=== PATIENT | female | born 1940 | race Caucasian/White ===

== ENCOUNTER 2016-11-07 11:06 | Outpatient (CLI) | payer MEDICARE, OTHER | END 2016-11-07 11:07 | disposition home or self-care (01) | DX: Z79.899 Other long term (current) drug therapy (principal); E55.9 Vitamin D deficiency, unspecified; I10 Essential (primary) hypertension ==

== ENCOUNTER 2017-06-28 23:53 | Outpatient (CLI) | payer MEDICARE, OTHER | END 2017-06-28 23:54 | disposition critical access hospital (66) | LOC: EMS 23:53 | PROVIDERS: ATTEND Surgery | DX: R40.20 Unspecified coma (principal) | CPT/HCPCS: A0425; A0427 ==

== ENCOUNTER 2017-06-29 00:24 | Observation (INO) | payer MEDICARE, OTHER ==
--- NOTE | 2017-06-29 00:40 | ED Physician Documentation ---
PD HPI ALTERED MENTAL STATUS - Stated complaint Stated Complaint: ALOC/SYNCOPE - Chief complaint Chief Complaint: Neuro - History obtained from History obtained from: Patient, EMS - History of Present Illness Timing - onset: How many days ago (has had some increased confusion and weakness for 2-3 days. Has been treating constipation with naturopathic colonics (enemas). Weaker today and then had syncope with then unresponsive after this evening going to bathroom. 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 No: Fever, Headache , Cough, Seizure activity Contributing factors: Other (being treated for chronic constipation, recently seen [employer] and given colonic enemas, with soft/watery stool per . No other change in meds.). No: Anticoagulated, Diabetic, Recent illness Basline status: Alert and oriented X 3, Ambulatory Similar symptoms before: Has not had sx before Recently seen: Clinic Review of Systems Constitutional: denies: Fever, Chills Eyes: denies: Loss of vision, Decreased vision Nose: denies: Rhinorrhea / runny nose Throat: denies: Sore throat Cardiac: denies: Chest pain / pressure, Palpitations Respiratory: denies: Dyspnea, Cough, Wheezing GI: reports: Nausea. denies: Abdominal Pain, Vomiting, Diarrhea, Bloody / black stool : denies: Dysuria, Frequency Musculoskeletal: reports: Back pain Neurologic: reports: Generalized weakness. denies: Focal weakness, Numbness Endocrine: denies: Weight loss Immunocompromised: denies: Immunocompromised PD PAST MEDICAL HISTORY - Past Medical History Cardiovascular: None Respiratory: None Neuro: None Endocrine/Autoimmune: None - Present Medications Home Medications: Ambulatory Orders Medication Instructions Recorded Confirmed Acetaminophen [Tylenol] 325 mg PO Q6H PRN 04/26/13 01/28/16 Gabapentin [Neurontin] 1,200 mg PO TID 04/26/13 01/28/16 LORazepam [Ativan] 2 mg PO HS 04/26/13 01/28/16 - Allergies Allergies/Adverse Reactions: Allergies Allergy/AdvReac Type Severity Reaction Status Date / Time cephalexin monohydrate * Allergy Hives Verified 01/28/16 01:14 [From [facility]] - Living Situation Living Situation: reports: With spouse/s.o. Living Arrangement: reports: At home - Family History Family history: reports: Non contributory PD ED PE NORMAL - Vitals Vital signs reviewed: Yes - General General: Other - HEENT HEENT: Other (minimally responsive on arrival to ED, with pallor. Responds to tactile/mild painful stimuli. ) - Neck Neck: Supple, no meningeal sign, No adenopathy - Cardiac Cardiac: RRR, No murmur - Respiratory Respiratory: Clear bilaterally - Abdomen Abdomen: Soft, Non tender - Female Female : Deferred - Rectal Rectal: Deferred - Back Back: No CVA TTP - Derm Derm: Normal color, Warm and dry - Extremities Extremities: No deformity, No tenderness to palpate, No edema, No calf tenderness / cord Results - Vitals Vitals: Vital Signs - 24 hr 06/29/17 06/29/17 00:27 01:20 Heart Rate 78 78 Respiratory 12 18 Rate Blood Pressure 121/66 128/78 O2 Saturation 97 100 Oxygen O2 Source Room air - Labs Labs: Laboratory Tests 06/29/17 06/29/17 06/29/17 01:04 01:04 01:04 WBC 7.5 RBC 3.75 L Hgb 11.8 L Hct 34.1 L MCV 90.8 MCH 31.5 H MCHC 34.7 RDW 15.9 H Plt Count 151 MPV 8.5 Neut # 6.4 Lymph # 0.5 L Kane # 0.5 Eos # 0.0 Baso # 0.0 Absolute Nucleated RBC 0.01 Nucleated RBCs 0.1 PT 10.8 INR 1.0 Sodium 126 L Potassium 3.8 Chloride 91 L Carbon Dioxide 26 Anion Gap 9.0 BUN 21 H Creatinine 0.7 Estimated GFR (MDRD) 81 L Glucose 119 H Calcium 9.7 Magnesium 2.1 Total Bilirubin 0.8 AST 59 H ALT 35 Alkaline Phosphatase 132 H Total Protein 6.5 L Albumin 3.7 Globulin 2.8 Albumin/Globulin Ratio 1.3 Lipase 121 H Urine Color Urine Clarity Urine pH Ur Specific [place] Urine Protein Urine Glucose (UA) Urine Ketones Urine Occult Blood Urine Nitrite Urine Bilirubin Urine Urobilinogen Ur Leukocyte Esterase Ur Microscopic Review Urine Culture Comments Urine Opiates Screen Ur Oxycodone Screen Urine Methadone Screen Ur Propoxyphene Screen Ur Barbiturates Screen Ur Tricyclics Screen Ur Phencyclidine Scrn Ur Amphetamine Screen U Methamphetamines Scrn U Benzodiazepines Scrn Urine Cocaine Screen U Cannabinoids Screen Ethyl Alcohol < 5.0 06/29/17 02:20 WBC RBC Hgb Hct MCV MCH MCHC RDW Plt Count MPV Neut # Lymph # Kane # Eos # Baso # Absolute Nucleated RBC Nucleated RBCs PT INR Sodium Potassium Chloride Carbon Dioxide Anion Gap BUN Creatinine Estimated GFR (MDRD) Glucose Calcium Magnesium Total Bilirubin AST ALT Alkaline Phosphatase Total Protein Albumin Globulin Albumin/Globulin Ratio Lipase Urine Color YELLOW Urine Clarity CLEAR Urine pH 6.0 Ur Specific [place] 1.010 Urine Protein NEGATIVE Urine Glucose (UA) NEGATIVE Urine Ketones NEGATIVE Urine Occult Blood TRACE-INTA Urine Nitrite NEGATIVE Urine Bilirubin NEGATIVE Urine Urobilinogen 0.2 (NORMAL) Ur Leukocyte Esterase NEGATIVE Ur Microscopic Review NOT INDICATED Urine Culture Comments NOT INDICATED Urine Opiates Screen NEGATIVE Ur Oxycodone Screen NEGATIVE Urine Methadone Screen NEGATIVE Ur Propoxyphene Screen NEGATIVE Ur Barbiturates Screen NEGATIVE Ur Tricyclics Screen NEGATIVE Ur Phencyclidine Scrn NEGATIVE Ur Amphetamine Screen NEGATIVE U Methamphetamines Scrn NEGATIVE U Benzodiazepines Scrn POSITIVE H Urine Cocaine Screen NEGATIVE U Cannabinoids Screen NEGATIVE Ethyl Alcohol - Rads (name of study) head CT Radiology: Prelim report reviewed, EMP read contemporaneously (normal) chest xray Radiology: Prelim report reviewed, EMP read contemporaneously (no acute process) PD MEDICAL DECISION MAKING - ED course Complexity details: reviewed results, considered differential (she did improve mentation shortly after arrival. Give IV fluids. Consider lytes (low sodium but not too low, from baseline. She could be dehdrated too, with the enemas used recently. Did head CT and no signs of CVA. Might consider MRI as better test for concern of CVA. ), d/w patient, d/w family, d/w funeral pre need consultant (Hospitalist) Departure - Departure Disposition: ED Place in Observation Clinical Impression: Hyponatremia, Chronic left hip pain Syncope Qualifiers: Syncope type: unspecified Qualified Code(s): R55 - Syncope and collapse Altered mental status Qualifiers: Altered mental status type: coma Coma depth: [place] coma 3-8 Coma timing: in the field (EMT or ambulance) Qualified Code(s): R40.2431 - Alisha coma scale score 3-8, in the field [EMT or ambulance] Condition: Stable Record reviewed to determine appropriate education?: Yes Discharge Date/Time: 06/29/17 03:35
[2017-06-29] MEDS ORDERED: SODIUM CHLORIDE 0.9% 1,000 ML IV ONE ×2 (00:44→01:57)
[2017-06-29 01:11] LABS: BASOPHILS % (AUTO) 0.3 %; EOSINOPHILS % (AUTO) 0.1 %; HCT - HEMATOCRIT 34.1 % (37.0-47.0); HGB - HEMOGLOBIN 11.8 g/dL (12.0-16.0); LYMPHOCYTES # (AUTO) 0.5 10^3/uL (1.5-3.5); LYMPHOCYTES % (AUTO) 6.7 %; MEAN CORPUSCULAR HEMOGLOBIN 31.5 pg (27.0-31.0); MEAN CORPUSCULAR HGB CONC 34.7 g/dL (32.0-36.0); MEAN CORPUSCULAR VOLUME 90.8 fL (81.0-99.0); MEAN PLATELET VOLUME 8.5 fL (7.9-10.8); MONOCYTES # (AUTO) 0.5 10^3/uL (0.0-1.0); MONOCYTES % (AUTO) 7.3 %; NEUTROPHILS # (AUTO) 6.4 10^3/uL (1.5-6.6); NEUTROPHILS % (AUTO) 85.6 %; NUCLEATED RED BLOOD CELLS AUTO 0.1 /100WBC; RED BLOOD COUNT 3.75 10^6/uL (4.20-5.40); RED CELL DISTRIBUTION WIDTH 15.9 % (12.0-15.0); UNCORRECTED WHITE BLOOD COUNT 7.5 x10^3/uL; WHITE BLOOD COUNT 7.5 x10^3/uL (4.8-10.8)
--- NOTE | 2017-06-29 01:15 | CT Preliminary Report ---
Exam: CT Head W/O IMPRESSION: Normal head CT. [facility] SITE ID: [id number]
[2017-06-29 01:24] LABS: ALBUMIN/GLOBULIN RATIO 1.3 (1.0-2.2); BILIRUBIN,TOTAL 0.8 mg/dL (0.2-1.0); BUN - BLOOD UREA NITROGEN 21 mg/dL (6-20); CALCIUM 9.7 mg/dL (8.5-10.3); CARBON DIOXIDE - CO2 26 mmol/L (21-32); CHLORIDE 91 mmol/L (101-111); CREATININE 0.7 mg/dL (0.4-1.0); GFR - MDRD 81 (>89); GLUCOSE 119 mg/dL (70-100); LIPASE 121 U/L (22-51); MAGNESIUM 2.1 mg/dL (1.7-2.8); POTASSIUM 3.8 mmol/L (3.5-5.0); SODIUM 126 mmol/L (135-145); TOTAL PROTEIN 6.5 g/dL (6.7-8.2)
--- NOTE | 2017-06-29 02:06 | CT Report ---
EXAM: CT HEAD EXAM DATE: 06/29/2017 12:55 AM. CLINICAL HISTORY: Altered mental status/ syncope an hour ago. COMPARISON: None. TECHNIQUE: Multiaxial CT images were obtained from the foramen magnum to the vertex. IV contrast: Non e. Reformats: Coronal. In accordance with CT protocol optimization, one or more of the following dose reduction techniques w ere utilized for this exam: automated exposure control, adjustment of mA and/or KV based on patient s ize, or use of iterative reconstructive technique. FINDINGS: Parenchyma: No intraparenchymal hemorrhage. No evidence of mass, midline shift, or CT findings of inf arction. Sifuentes-white differentiation is distinct. Extraaxial Spaces: Normal for age. No subdural or epidural collections identified. Ventricles: Normal in size and position. Sinuses: Imaged paranasal sinuses, orbits, and mastoids show no significant abnormality. Bones: No evidence of fracture or calvarial defect. Other: None. IMPRESSION: Normal head CT. [facility] Referring Provider Line: [phone] SITE ID: [id number]
[2017-06-29 02:46] LABS: BILIRUBIN,URINE NEGATIVE (NEGATIVE)
[2017-06-29 02:52] LABS: UA CHARGE (STRIP ONLY) YES; UR CULTURE IF IND NOT INDICATED
[2017-06-29] MEDS ORDERED: ACETAMINOPHEN 325 MG TABLET PO PRN (02:55)
[2017-06-29] MEDS ORDERED: PROCHLORPERAZINE 10 MG/2 ML VIAL IVP PRN (02:55)
[2017-06-29] MEDS ORDERED: IBUPROFEN 600 MG TABLET PO PRN (02:55)
[2017-06-29] MEDS ORDERED: SODIUM CHLORIDE FLUSH 0.9% 10 ML SYRINGE IVP PRN (02:55)
[2017-06-29] MEDS ORDERED: ONDANSETRON 4 MG/2 ML VIAL IVP PRN (02:55)
[2017-06-29] MEDS ORDERED: SODIUM CHLORIDE 0.9% 1,000 ML IV SCH (03:00)
--- NOTE | 2017-06-29 03:01 | HISTORY & PHYSICAL EXAMINATION ---
Chief Complaint - Chief Complaint Chief Complaint: Syncope History of Present Illness - Admitted From Admitted From:: Emergency department - History Obtained From Records Reviewed: Yes History obtained from: Patient's and emergency room records Exam Limitations: Patient lethargic and unable to provide her history - History of Present Illness HPI Comment/Other: Patient is a 77-year-old female with a past medical history significant for complex regional pain syndrome with pain in her left hip and left leg, peripheral neuropathy, chronic constipation, diffuse osteoarthritis and debility requiring the patient to be in a wheelchair she presents today to the emergency department due to an episode of syncope at home. The patient's states that the patient suffers from chronic constipation since a hospitalization last July at [facility]. He states that at that time the patient presented with a syncopal episode and ended up in delirium with a 11 day stay at the hospital. He states that she went through rehab and eventually recovered but has had chronic constipation since. The states that there was a period of time in March where the patient did not have a bowel movement for 2 months. He states that she has been seeing her primary care doctor and was prescribed laxatives but these were not helping. Therefore recently the patient went to see a colorectal therapist who is a natural path. Last week she was started on a colon therapy which included enemas and helps to wash out her fecal impaction. The patient received therapy for 3 days most recently 3 days ago. The patient has not been her normal self since yesterday. The patient's states that he noticed yesterday the patient was less active, twitching and less alert. He states that he thought about bringing her into the hospital earlier today because she was not her normal energetic self. However he decided against it then at around 11 PM this evening he states that he was taking his to the bathroom in her wheelchair when she had an episode of syncope. He states that she completely lost consciousness and even when he was able to wake her up she was very lethargic therefore he decided to call 911 and the patient was brought into the emergency department. It was difficult to get a full history from the patient due to her heart still being lethargic but the patient did deny any headaches, blurred vision, runny nose, sore throat, nasal congestion, fevers, chills, chest pain, shortness of air, orthopnea, PND, increased lower extremity swelling, she admitted to fatigue , she admitted to constipation, she denied any diarrhea, she denied any nausea, vomiting, urinary urgency, urinary frequency, dysuria, she did admit to having back pain which was from lying in the stretcher in the emergency department, she denied any new focal neurologic deficits, she denied any recent unintentional weight loss, she does have poor appetite and poor oral intake. On presentation to the emergency department the patient was afebrile and vital signs were within normal limits. The patient however was quite lethargic on presentation and was unable to answer any questions initially. The patient underwent routine lab work which revealed a significant hyponatremia with a sodium of 126 and hypochloremia with a chloride of 91. The patient also had an elevated BUN of 21. Given the patient's recent colonic treatment and her electrolytes she appear to be dehydrated. The patient was given IV fluids in the emergency department, she received 2 L. After this she did begin to perk up and was able to answer some questions. However the patient's stated that she was still not back to her baseline. The patient did undergo infectious workup her UA and chest x-ray were negative for infection. She had no leukocytosis and no fever. The patient's U tox was positive for benzodiazepines but the patient does take Ativan. The patient was placed in observation for further syncopal workup and continued monitoring. History - Past Medical History Cardiovascular: reports: None Respiratory: reports: None Neuro: reports: Headache/migraine, Peripheral neuropathy, Fainting Endocrine/Autoimmune: reports: None GI: reports: None HANDS ASSEMBLER: reports: None : reports: None HEENT: reports: Chronic vision loss Psych: reports: Anxiety Musculoskeletal: reports: Osteoarthritis, Other (Complex regional pain syndrome mostly affecting the left leg and left hip.) Derm: reports: Herpes zoster MRSA Hx?: No - Past Surgical History Ortho: reports: Hip replacement /HANDS ASSEMBLER: reports: Tubal ligation HEENT: reports: Tonsil/Adenoidectomy - Family & Social History Family History Comment/Other: Patient is adopted Living arrangement: At home Living Situation: With spouse/s.o. Social History Notes: The patient is originally from [place], she and her retired and moved up to [facility] where 1 of third daughters lives. They currently live in [facility]. The patient had 3 children 1 of whom has . The patient has never smoked, she does not drink alcohol and denies any illicit drug use. The patient is almost entirely dependent on her for her activities of daily living due to her severe arthritis, complex regional pain syndrome and neuropathy which have left her wheelchair-bound and only able to walk a few steps with a walker. - Substance History Use: Uses substance without health or social issues: NONE Abuse: Recurrent use of substance despite neg consequences: NONE Dependence: Experiences withdrawal or developed tolerances: NONE - POLST Patient has POLST: No POLST Status: Full Code Meds/Allgy - Home Medications Home Medications: Ambulatory Orders Medication Instructions Recorded Confirmed Acetaminophen [Tylenol] 325 mg PO Q6H PRN 04/26/13 01/28/16 Gabapentin [Neurontin] 1,200 mg PO TID 04/26/13 01/28/16 LORazepam [Ativan] 2 mg PO HS 04/26/13 01/28/16 - Allergies Allergies/Adverse Reactions: Allergies Allergy/AdvReac Type Severity Reaction Status Date / Time cephalexin monohydrate * Allergy Hives Verified 01/28/16 01:14 [From [facility]] Review of Systems - Other Findings Other Findings: A comprehensive review of systems was performed the pertinent positives and negatives are stated above in the HPI and the remainder of the review of systems is negative. Exam - Vital Signs Reviewed Vital Signs: Yes Vital Signs: Vital Signs x48h Pulse Resp BP Pulse Ox 06/29/17 01:20 78 18 128/78 100 06/29/17 00:27 78 12 121/66 97 - Physical Exam General Appearance: positive: Lethargic Eyes Bilateral: positive: Normal inspection, PERRL, EOMI, No lid inflammation, Conjunctivae nml, No scleral icterus ENT: positive: ENT inspection nml, Pharynx nml, Dry mucous membranes. negative : Purulent nasal drainage, Pharyngeal erythema, Oral lesions Neck: positive: Nml inspection, Thyroid nml, No JVD, Trachea midline. negative : Thyromegaly, Lymphadenopathy (R), Lymphadenopathy (L), Carotid bruit, Tracheal deviation Respiratory: positive: Chest non-tender, No respiratory distress, Breath sounds nml. negative: Wheezes, Rales, Rhonchi Cardiovascular: positive: Regular rate & rhythm, No murmur, No gallop Peripheral Pulses: positive: 2+ Abdomen: positive: Non-tender, No organomegaly, Nml bowel sounds, No distention. negative: Guarding, Rebound, Hepatomegaly Back: positive: Nml inspection. negative: CVA tenderness (R), CVA tenderness (L ) Skin: positive: Color nml, No rash, Dry, Other (Erythema of bilateral lower extremities left worse than right). negative: Cyanosis, Diaphoresis, Pallor Extremities: positive: Non-tender, Pedal edema (Left worse than right), Other ( Patient has hypertrophic MCP joints bilaterally on her hands. Patient has deformities of osteoarthritis on both her upper and lower extremities specifically in the hands and the feet. She has limited range of motion of her upper and lower extremities with increasing tone.) Neurologic/Psychiatric: positive: Oriented x3, CN's nml (2-12), Sensation nml, Weakness (Patient has generalized weakness of both her upper and lower extremities.), Sensory loss (Decreased in the lower extremities), Other ( Patient is lethargic but she is able to open her eyes and answers questions appropriately.). negative: Facial droop Conclusion/Plan - Problem List (1) Syncope Conclusion/Plan: Patient had a syncopal episode at home prior to arrival to the emergency department. After the episode the patient did appear to be lethargic and it did take some time for her to recover. The patient's witnessed the episode and did not notice any tonic-clonic activities. Patient did not have any new focal neurologic deficits on examination. Patient CT head was negative. The patient did not have any evidence for infection including no leukocytosis, no fevers, her chest x-ray and UA were negative. The patient did not have any events on telemetry. She did have improvement after receiving 2 L of fluid in the emergency department. On presentation the patient was not hypotensive but she did show signs of dehydration including on her electrolytes as well as on examination. The patient had been having colonic treatment with enemas over the last week. We suspect that the patient's syncope is likely due to dehydration. However we cannot completely rule out other etiology therefore we will do a full syncopal workup on the patient. Plan: Place patient on telemetry and observation Echocardiogram in the morning Carotid Dopplers in the morning Neurochecks every 4 hours IV fluids Monitor closely Qualifiers: Syncope type: unspecified Qualified Code(s): R55 - Syncope and collapse (2) Metabolic encephalopathy Conclusion/Plan: According to the patient's the patient has not been her normal self since yesterday. He has noticed that she has had decreased level of activity and has had generalized fatigue and lethargy. Today after her syncopal episode the patient was very lethargic and difficult to arouse. It appears that her encephalopathy was likely due to her hyponatremia and dehydration likely secondary to her colonic treatment over the last week. Infectious workup was negative and CT head was negative. Plan: Monitor closely in observation Neurochecks every 4 hours IV fluids Patient is improving (3) Hyponatremia Conclusion/Plan: The patient appears to have hypovolemic hyponatremia likely secondary to her colonic treatment and poor hydration. Plan: We will give the patient IV fluids and monitor her sodium. (4) Anxiety Conclusion/Plan: Patient has a history of anxiety and she uses Ativan at night. Currently she seems to be stable and we will continue her home dose of Ativan. (5) Peripheral neuropathy Conclusion/Plan: The patient was previously on gabapentin for her peripheral neuropathy however she has been weaned off the gabapentin. She only uses Tylenol and Motrin for pain and we will continue these while she is in the hospital. (6) Prophylactic use of low molecular weight heparin for venous thromboembolism (VTE) Conclusion/Plan: Patient will be placed on Lovenox for DVT prophylaxis while she is hospitalized. - Lab Results Lab results reviewed: Yes Fish Bones: 06/29/17 01:04 06/29/17 01:04 Other Lab Results: Laboratory Results WBC 7.5 x10^3/uL (4.8-10.8) 06/29/17 01:04 RBC 3.75 10^6/uL (4.20-5.40) L 06/29/17 01:04 Hgb 11.8 g/dL (12.0-16.0) L 06/29/17 01:04 Hct 34.1 % (37.0-47.0) L 06/29/17 01:04 MCV 90.8 fL (81.0-99.0) 06/29/17 01:04 MCH 31.5 pg (27.0-31.0) H 06/29/17 01:04 MCHC 34.7 g/dL (32.0-36.0) 06/29/17 01:04 RDW 15.9 % (12.0-15.0) H 06/29/17 01:04 Plt Count 151 10^3/uL (130-450) 06/29/17 01:04 MPV 8.5 fL (7.9-10.8) 06/29/17 01:04 Neut # 6.4 10^3/uL (1.5-6.6) 06/29/17 01:04 Lymph # 0.5 10^3/uL (1.5-3.5) L 06/29/17 01:04 [place] # 0.5 10^3/uL (0.0-1.0) 06/29/17 01:04 Eos # 0.0 10^3/uL (0.0-0.7) 06/29/17 01:04 Baso # 0.0 10^3/uL (0.0-0.1) 06/29/17 01:04 Absolute Nucleated RBC 0.01 x10^3/uL 06/29/17 01:04 Nucleated RBCs 0.1 /100WBC 06/29/17 01:04 Sodium 126 mmol/L (135-145) L 06/29/17 01:04 Potassium 3.8 mmol/L (3.5-5.0) 06/29/17 01:04 Chloride 91 mmol/L (101-111) L 06/29/17 01:04 Carbon Dioxide 26 mmol/L (21-32) 06/29/17 01:04 Anion Gap 9.0 (6-13) 06/29/17 01:04 BUN 21 mg/dL (6-20) H 06/29/17 01:04 Creatinine 0.7 mg/dL (0.4-1.0) 06/29/17 01:04 Estimated GFR (MDRD) 81 (>89) L 06/29/17 01:04 Glucose 119 mg/dL (70-100) H 06/29/17 01:04 Calcium 9.7 mg/dL (8.5-10.3) 06/29/17 01:04 Magnesium 2.1 mg/dL (1.7-2.8) 06/29/17 01:04 Total Bilirubin 0.8 mg/dL (0.2-1.0) 06/29/17 01:04 AST 59 IU/L (10-42) H 06/29/17 01:04 ALT 35 IU/L (10-60) 06/29/17 01:04 Alkaline Phosphatase 132 IU/L (42-121) H 06/29/17 01:04 Total Protein 6.5 g/dL (6.7-8.2) L 06/29/17 01:04 Albumin 3.7 g/dL (3.2-5.5) 06/29/17 01:04 Globulin 2.8 g/dL (2.1-4.2) 06/29/17 01:04 Albumin/Globulin Ratio 1.3 (1.0-2.2) 06/29/17 01:04 Lipase 121 U/L (22-51) H 06/29/17 01:04 Urine Color YELLOW 06/29/17 02:20 Urine Clarity CLEAR (CLEAR) 06/29/17 02:20 Urine pH 6.0 PH (5.0-7.5) 06/29/17 02:20 Ur Specific [place] 1.010 (1.002-1.030) 06/29/17 02:20 Urine Protein NEGATIVE mg/dL (NEGATIVE) 06/29/17 02:20 Urine Glucose (UA) NEGATIVE mg/dL (NEGATIVE) 06/29/17 02:20 Urine Ketones NEGATIVE mg/dL (NEGATIVE) 06/29/17 02:20 Urine Occult Blood TRACE-INTA (NEGATIVE) 06/29/17 02:20 Urine Nitrite NEGATIVE (NEGATIVE) 06/29/17 02:20 Urine Bilirubin NEGATIVE (NEGATIVE) 06/29/17 02:20 Urine Urobilinogen 0.2 (NORMAL) E.U./dL (NORMAL) 06/29/17 02:20 Ur Leukocyte Esterase NEGATIVE (NEGATIVE) 06/29/17 02:20 Ur Microscopic Review NOT INDICATED 06/29/17 02:20 Urine Culture Comments NOT INDICATED 06/29/17 02:20 Urine Opiates Screen NEGATIVE (NEGATIVE) 06/29/17 02:20 Ur Oxycodone Screen NEGATIVE (NEGATIVE) 06/29/17 02:20 Urine Methadone Screen NEGATIVE (NEGATIVE) 06/29/17 02:20 Ur Propoxyphene Screen NEGATIVE (NEGATIVE) 06/29/17 02:20 Ur Barbiturates Screen NEGATIVE (NEGATIVE) 06/29/17 02:20 Ur Tricyclics Screen NEGATIVE (NEGATIVE) 06/29/17 02:20 Ur Phencyclidine Scrn NEGATIVE (NEGATIVE) 06/29/17 02:20 Ur Amphetamine Screen NEGATIVE (NEGATIVE) 06/29/17 02:20 U Methamphetamines Scrn NEGATIVE (NEGATIVE) 06/29/17 02:20 U Benzodiazepines Scrn POSITIVE (NEGATIVE) H 06/29/17 02:20 Urine Cocaine Screen NEGATIVE (NEGATIVE) 06/29/17 02:20 U Cannabinoids Screen NEGATIVE (NEGATIVE) 06/29/17 02:20 Ethyl Alcohol < 5.0 mg/dL 06/29/17 01:04 - Diagnostic Imaging Results Diagnostic Imaging Results: positive: Final report reviewed Diagnostic Imaging Results Comments: CT head Impression: Normal CT head Chest x-ray Impression: 1. Borderline heart size with possible pulmonary vascular congestion Issues/Core Measures - Anticipated LOS Anticipated Stay Length: Less than 2 midnights - DVT/VTE - Prophylaxis VTE/DVT Prophylaxis med ordered at admit?: Yes
[2017-06-29] MEDS ORDERED: LORazepam 0.5 MG TABLET PO PRN (03:50)
--- NOTE | 2017-06-29 04:31 | XRAY Preliminary Report ---
Exam: XR Chest 1 View IMPRESSION: 1. Borderline heart size with possible pulmonary vascular congestion. [facility] SITE ID: [id number]
--- NOTE | 2017-06-29 04:33 | XRAY Report ---
EXAM: CHEST RADIOGRAPHY EXAM DATE: 06/29/2017 04:17 AM. CLINICAL HISTORY: Syncope. COMPARISON: 01/28/2016. TECHNIQUE: 1 view. FINDINGS: Lungs/Pleura: No alveolar consolidation or pleural effusion. No pneumothorax. Possible pulmonary vasc ular congestion. Mediastinum: Heart size upper normal. Tortuous aorta. Other: Osteopenia. IMPRESSION: 1. Borderline heart size with possible pulmonary vascular congestion. [facility] Referring Provider Line: [phone] SITE ID: [id number]
[2017-06-29] MEDS ORDERED: SODIUM CHLORIDE FLUSH 0.9% 10 ML SYRINGE IVP SCH (06:00)
[2017-06-29] MEDS ORDERED: GABAPENTIN 300 MG CAPSULE PO SCH (06:00)
[2017-06-29 07:32] LABS: PT - PROTHROMBIN TIME 10.8 secs (9.9-12.6)
[2017-06-29] MEDS ORDERED: FAMOTIDINE 20 MG TABLET PO SCH (09:00)
[2017-06-29] MEDS ORDERED: POLYETHYLENE GLYCOL 3350 17 GM PACKET PO SCH (09:00)
[2017-06-29] MEDS ORDERED: ENOXAPARIN 40 MG/0.4 ML SYRINGE SUBQ SCH (09:00)
--- NOTE | 2017-06-29 11:58 | Ultrasound Report ---
CAROTID DUPLEX: 06/29/2017 CLINICAL INDICATION: Syncope. TECHNIQUE: Real-time sonographic vascular imaging was performed by the chorus master through the carotid arteries utilizing both color-flow and Doppler spectral analysis. Multiple sales representative advertising static images were saved for review. Vessel PSV cm/sec 2D Plaque Estimate % EDV cm/sec ICA/CCA PSV % Stenosis RCCA Prox 86 -- RCCA Dist 76 18 -- RECA 74 -- RT BULB 32 -- 6 0.42 ANSON Prox 42 -- 16 0.55 ANSON Mid 45 -- 17 0.59 ANSON Dist 55 -- 18 0.72 RVA 34 Vessel PSV cm/sec 2D Plaque Estimate % EDV cm/sec ICA/CCA PSV % Stenosis LCCA Prox 73 -- LCCA Dist 91 22 -- LECA 84 -- LFT BULB 62 -- 15 0.68 LICA Prox 56 -- 18 0.62 LICA Mid 99 -- 30 1.09 LICA Dist 43 -- 18 0.47 LVA 54 LVA flow direction: Antegrade. Velocity criteria are extrapolated from diameter data as defined by the Society of Radiologists in Ultrasound Consensus Conference Radiology 2003; 229; 340-346. Degree of Stenosis % ICA PSV cm/sec Plaque Estimate % ICA/CCA RSV Ratio ICA EDV cm/sec Normal < 125 None < 2.0 < 40 <50 < 125 < 50 < 2.0 < 40 50-69 125 - 130 >/= 50 2.0 - 4.0 40 - 100 >/= 70 but less than near occlusion > 230 >/= 50 > 4.0 > 100 Near occlusion High, low, or undetectable Visible lumen Variable Variable Total occlusion Undetectable No detectable lumen Not applicable Not applicable FINDINGS RIGHT: There is minimal plaquing in the right carotid bifurcation, without evidence of a focal hemodynamically significant carotid stenosis. LEFT: There is minimal plaquing in the left carotid bifurcation, without evidence of a focal hemodynamically significant carotid stenosis. The vertebral arteries demonstrate antegrade flow bilaterally. IMPRESSION: MINIMAL PLAQUING BILATERALLY, WITHOUT EVIDENCE OF A FOCAL HEMODYNAMICALLY SIGNIFICANT CAROTID STENOSIS. MTDD
[2017-06-29 12:29] LABS: BASOPHILS % (AUTO) 0.7 %; EOSINOPHILS % (AUTO) 0.3 %; HCT - HEMATOCRIT 32.5 % (37.0-47.0); HGB - HEMOGLOBIN 11.2 g/dL (12.0-16.0); LYMPHOCYTES # (AUTO) 0.6 10^3/uL (1.5-3.5); LYMPHOCYTES % (AUTO) 8.2 %; MEAN CORPUSCULAR HEMOGLOBIN 31.3 pg (27.0-31.0); MEAN CORPUSCULAR HGB CONC 34.4 g/dL (32.0-36.0); MEAN CORPUSCULAR VOLUME 90.8 fL (81.0-99.0); MEAN PLATELET VOLUME 8.4 fL (7.9-10.8); MONOCYTES # (AUTO) 0.5 10^3/uL (0.0-1.0); MONOCYTES % (AUTO) 7.4 %; NEUTROPHILS # (AUTO) 5.6 10^3/uL (1.5-6.6); NEUTROPHILS % (AUTO) 83.4 %; RED BLOOD COUNT 3.58 10^6/uL (4.20-5.40); RED CELL DISTRIBUTION WIDTH 15.7 % (12.0-15.0); UNCORRECTED WHITE BLOOD COUNT 6.7 x10^3/uL; WHITE BLOOD COUNT 6.7 x10^3/uL (4.8-10.8)
[2017-06-29 12:45] LABS: ALBUMIN/GLOBULIN RATIO 1.2 (1.0-2.2); BILIRUBIN,TOTAL 0.9 mg/dL (0.2-1.0); CALCIUM 9.4 mg/dL (8.5-10.3); CREATININE 0.6 mg/dL (0.4-1.0); POTASSIUM 3.9 mmol/L (3.5-5.0)
[2017-06-29] MEDS ORDERED: SODIUM CHLORIDE 1 GM TABLET PO ONE (14:33)
--- NOTE | 2017-06-29 14:34 | DISCHARGE SUMMARY ---
"Discharge Summary Admit Date: 06/29/17 Discharge Date: 06/29/17 Discharging Provider: JUMA LUDWIG Code Status: Attempt Resuscitation Condition at Discharge: Stable Discharge Disposition: 01 Home, Self Care Discharge Facility Name: HOME - DIAGNOSES Admission Diagnoses: 1. SYNCOPE AND COLLAPSE 2. ACUTE METABOLIC ENCEPHALOPATHY 2. ACUTE ON CHRONIC HYPONATREMIA 3. GENERALIZED ANXIETY DISORDER 4. ACUTE WEAKNESS Discharge Diagnoses with Status of Each Condition: 1. SYNCOPE AND COLLAPSE 2. ACUTE METABOLIC ENCEPHALOPATHY 2. ACUTE ON CHRONIC HYPONATREMIA 3. GENERALIZED ANXIETY DISORDER 4. ACUTE WEAKNESS - HPI History of Present Illness: Patient is a 77-year-old female with a past medical history significant for complex regional pain syndrome with pain in her left hip and left leg, peripheral neuropathy, chronic constipation, diffuse osteoarthritis and debility requiring the patient to be in a wheelchair she presents today to the emergency department due to an episode of syncope at home. The patient's states that the patient suffers from chronic constipation since a hospitalization last July at [facility]. He states that at that time the patient presented with a syncopal episode and ended up in delirium with a 11 day stay at the hospital. He states that she went through rehab and eventually recovered but has had chronic constipation since. The states that there was a period of time in March where the patient did not have a bowel movement for 2 months. He states that she has been seeing her primary care doctor and was prescribed laxatives but these were not helping. Therefore recently the patient went to see a colorectal therapist who is a natural path. Last week she was started on a colon therapy which included enemas and helps to wash out her fecal impaction. The patient received therapy for 3 days most recently 3 days ago. The patient has not been her normal self since yesterday. The patient's states that he noticed yesterday the patient was less active, twitching and less alert. He states that he thought about bringing her into the hospital earlier today because she was not her normal energetic self. However he decided against it then at around 11 PM this evening he states that he was taking his to the bathroom in her wheelchair when she had an episode of syncope. He states that she completely lost consciousness and even when he was able to wake her up she was very lethargic therefore he decided to call 911 and the patient was brought into the emergency department. It was difficult to get a full history from the patient due to her heart still being lethargic but the patient did deny any headaches, blurred vision, runny nose, sore throat, nasal congestion, fevers, chills, chest pain, shortness of air, orthopnea, PND, increased lower extremity swelling, she admitted to fatigue , she admitted to constipation, she denied any diarrhea, she denied any nausea, vomiting, urinary urgency, urinary frequency, dysuria, she did admit to having back pain which was from lying in the stretcher in the emergency department, she denied any new focal neurologic deficits, she denied any recent unintentional weight loss, she does have poor appetite and poor oral intake. On presentation to the emergency department the patient was afebrile and vital signs were within normal limits. The patient however was quite lethargic on presentation and was unable to answer any questions initially. The patient underwent routine lab work which revealed a significant hyponatremia with a sodium of 126 and hypochloremia with a chloride of 91. The patient also had an elevated BUN of 21. Given the patient's recent colonic treatment and her electrolytes she appear to be dehydrated. The patient was given IV fluids in the emergency department, she received 2 L. After this she did begin to perk up and was able to answer some questions. However the patient's stated that she was still not back to her baseline. The patient did undergo infectious workup her UA and chest x-ray were negative for infection. She had no leukocytosis and no fever. The patient's U tox was positive for benzodiazepines but the patient does take Ativan. The patient was placed in observation for further syncopal workup and continued monitoring. - CONSULTS | PROCEDURES Consultations: physical therapy evaluation Procedures: ct of head- negative for acute process Echocardiogram: Carotid doppler: [facility] - HOSPITAL COURSE Hospital Course: HOSPITAL COURSE: (1) Syncope with collapse Patient had a syncopal episode at home prior to arrival to the emergency department. After the episode the patient did appear to be lethargic and it did take some time for her to recover. The patient's witnessed the episode and did not notice any tonic-clonic activities. Patient did not have any new focal neurologic deficits on examination. Patient CT head was negative. The patient did not have any evidence for infection including no leukocytosis, no fevers, her chest x-ray and UA were negative. The patient did not have any events on telemetry. She did have improvement after receiving 2 L of fluid in the emergency department. On presentation the patient was not hypotensive but she did show signs of dehydration including on her electrolytes as well as on examination. The patient had been having colonic treatment with enemas over the last week. We suspect that the patient's syncope is likely due to dehydration. However we cannot completely rule out other etiology therefore we will do a full syncopal workup on the patient. She was placed on telemetry and observation Echocardiogram completed, Carotid Dopplers, completed Neurochecks every 4 hours. Gave IV fluids (2) Metabolic encephalopathy According to the patient's the patient has not been her normal self since yesterday. He has noticed that she has had decreased level of activity and has had generalized fatigue and lethargy. Today after her syncopal episode the patient was very lethargic and difficult to arouse. It appears that her encephalopathy was likely due to her hyponatremia and dehydration likely secondary to her colonic treatment over the last week. Infectious workup was negative and CT head was negative. continued [facility] IV fluids and neuro checks (3) Hyponatremia The patient appears to have hypovolemic hyponatremia likely secondary to her colonic treatment and poor hydration. We gave patient IV fluids and monitored her sodium. we gave a salt tab 1 gm (4) Anxiety Patient has a history of anxiety and she uses Ativan at night. Currently she seems to be stable and we continued her home dose of Ativan. (5) Peripheral neuropathy The patient was previously on gabapentin for her peripheral neuropathy however she has been weaned off the gabapentin. She only uses Tylenol and Motrin for pain and we continued these while she was in the hospital. (6) Prophylactic use of low molecular weight heparin for venous thromboembolism (VTE) Patient was placed on Lovenox for DVT prophylaxis while she was hospitalized. - ALLERGIES Allergies/Adverse Reactions: Allergies Allergy/AdvReac Type Severity Reaction Status Date / Time cephalexin monohydrate * Allergy Hives Verified 01/28/16 01:14 [From [employer]] - MEDICATIONS Home Medications: Ambulatory Orders Medication Instructions Recorded Confirmed Acetaminophen [Tylenol] 325 mg PO Q6H PRN 04/26/13 06/29/17 Gabapentin [Neurontin] 1,200 mg PO TID 04/26/13 01/28/16 LORazepam [Ativan] 2 mg PO HS 04/26/13 06/29/17 - PHYSICAL EXAM AT DISCHARGE General Appearance: positive: No acute distress, Alert Eyes Bilateral: positive: Normal inspection, PERRL, EOMI ENT: positive: ENT inspection nml, Pharynx nml, No signs of dehydration Neck: positive: Nml inspection, Thyroid nml, No JVD, Trachea midline Respiratory: positive: Chest non-tender, No respiratory distress, Breath sounds nml Cardiovascular: positive: Regular rate & rhythm, No murmur, No gallop Peripheral Pulses: positive: 2+ Abdomen: positive: Non-tender, No organomegaly, Nml bowel sounds, No distention Back: positive: Nml inspection Skin: positive: Color nml, No rash, Warm, Dry Extremities: positive: Non-tender, Full ROM, Nml appearance Neurologic/Psychiatric: positive: Oriented x3, CN's nml (2-12), Motor nml, Sensation nml, Mood/affect nml - LABS Result Diagrams: 06/29/17 12:25 06/29/17 12:25 Other Lab Results: Abnormal Lab Results 06/29/17 06/29/17 06/29/17 01:04 01:04 02:20 RBC 3.75 10^6/uL L 10^6/uL (4.20-5.40) Hgb 11.8 g/dL L g/dL (12.0-16.0) Hct 34.1 % L % (37.0-47.0) MCH 31.5 pg H pg (27.0-31.0) RDW 15.9 % H % (12.0-15.0) Lymph # 0.5 10^3/uL L 10^3/uL (1.5-3.5) Sodium 126 mmol/L L mmol/L (135-145) Chloride 91 mmol/L L mmol/L (101-111) BUN 21 mg/dL H mg/dL (6-20) Estimated GFR (MDRD) 81 L (>89) Glucose 119 mg/dL H mg/dL (70-100) AST 59 IU/L H IU/L (10-42) Alkaline Phosphatase 132 IU/L H IU/L (42-121) Total Protein 6.5 g/dL L g/dL (6.7-8.2) Lipase 121 U/L H U/L (22-51) U Benzodiazepines Scrn POSITIVE H (NEGATIVE) 06/29/17 06/29/17 12:25 12:25 RBC 3.58 10^6/uL L 10^6/uL (4.20-5.40) Hgb 11.2 g/dL L g/dL (12.0-16.0) Hct 32.5 % L % (37.0-47.0) MCH 31.3 pg H pg (27.0-31.0) RDW 15.7 % H % (12.0-15.0) Lymph # 0.6 10^3/uL L 10^3/uL (1.5-3.5) Sodium 130 mmol/L L mmol/L (135-145) Chloride 96 mmol/L L mmol/L (101-111) BUN Estimated GFR (MDRD) Glucose AST 56 IU/L H IU/L (10-42) Alkaline Phosphatase Total Protein 6.0 g/dL L g/dL (6.7-8.2) Lipase U Benzodiazepines Scrn - DIAGNOSTIC IMAGING Diagnostic Imaging Results: Prelim report reviewed, Final report reviewed - FOLLOW UP Follow Up: PATIENT WAS INSTRUCTED TO SEE PRIMARY CARE PROVIDER WITHIN ONE WEEK OF DISCHARGE AND WAS GIVEN INFORMATION REGARDING TEST RESULTS SHE WAS TOLD TO RETURN TO THE ER IF SYMPTOMS WORSEN OR IF SHE HAS CHEST PAIN OR SHORTNESS OF BREATH. TO TAKE PATIENT HOME AND VERBALLY UNDERSTOOD ALL INSTRUCTIONS GIVEN - TIME SPENT Time Spent in Discharge (Minutes): 45 (ASSESSMENT, DISCHARGE PLANNING)"
--- NOTE | 2017-06-29 15:06 | Discharge Plan ---
Discharge Plan Disposition: 01 Home, Self Care Condition: Stable Diet: Regular Activity Restrictions: Activity as Tolerated Shower Restrictions: No Driving Restrictions: No Assistance Devices: Walker Weight Bearing: Full Weight Instruction Topics: Syncope Causes, Syncope Tx Prevent Additional Instructions or Follow Up instructions: PLEASE SEE YOUR PRIMARY CARE PROVIDER WITHIN ONE WEEK OF DISCHARGE AND TELL THEM YOU WERE IN THE HOSPITAL. CONTINUE TO TAKE ALL HOME MEDICATIONS PRESCRIBED CONTINUE TO GET PLENTY OF REST AND EAT A HEART HEALTHY DIET CONTINUE TO GET EXERCISE DAILY TOLERATED RETURN TO THE ER IF SYMPTOMS WORSEN OR YOU HAVE CHEST PAIN OR SHORTNESS OF BREATH No Smoking: If you smoke, Please STOP! Call for help.
[2017-06-29 16:38] VITALS: BP 119/66
== END 2017-06-29 16:42 | disposition home or self-care (01) ==
LOC: EDUNIT# → ED 00:24 → SUPCPDRO 00:24 → OBS 02:55
PROVIDERS: ADMIT Internal Medicine; ATTEND Nurse Practitioner
DX: R55 Syncope and collapse (principal); G93.41 Metabolic encephalopathy; E87.1 Hypo-osmolality and hyponatremia; K59.09 Other constipation; F41.1 Generalized anxiety disorder; R53.1 Weakness; G90.522 Complex regional pain syndrome I of left lower limb; G62.9 Polyneuropathy, unspecified; M15.8 Other polyosteoarthritis; Z99.3 Dependence on wheelchair; Z79.899 Other long term (current) drug therapy; Z96.649 Presence of unspecified artificial hip joint
CPT/HCPCS: 36415; 51701; 70450; 71010; 80053; 80306; 81003; 83690; 83735; 84484; 85025; 85610; 93005; 93306; 93880; 96372; 99284; 99285; A9270; G0378; G0480; J1650; 80320; 81001; 87086

== ENCOUNTER 2017-07-09 16:41 | Inpatient (IN) | payer MEDICARE, OTHER ==
--- NOTE | 2017-07-09 17:38 | ED Physician Documentation ---
PD HPI FOCAL NEURO - Stated complaint Stated Complaint: CONFUSION - Chief complaint Chief Complaint: Neuro - History obtained from History obtained from: Patient, Family () - Additional information Additional information: This is a 77-year-old woman with CRPS from a hip surgery, wheelchair-bound because of that, but at baseline neurologically normal. She has recurrent episodes where she becomes delirious for several days and then becomes syncopal. She has been admitted and worked up for this several times. This includes a 16 day stay at [facility] last year for this, at which time she had an MRI that was normal per the . She was admitted for this 2 weeks ago with some modest electrolyte abnormalities, specifically hyponatremia after a colonic treatment. She became altered about 3 days ago. He says basically she just spends most of her time confused and picking at her clothes and not knowing what is going on. 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 : None HEENT: Chronic vision loss Psych: Anxiety Musculoskeletal: Osteoarthritis, Other (Complex regional pain syndrome mostly affecting the left leg and left hip.) Derm: Herpes zoster - Past Surgical History Past Surgical History: Yes Ortho: Hip replacement /PATROL POLICE LIEUTENANT: Tubal ligation HEENT: Tonsil/Adenoidectomy - Present Medications Home Medications: Ambulatory Orders Medication Instructions Recorded Confirmed Acetaminophen [Tylenol] 325 mg PO Q6H PRN 04/26/13 07/09/17 LORazepam [Ativan] 2 mg PO HS 04/26/13 07/09/17 - Allergies Allergies/Adverse Reactions: Allergies Allergy/AdvReac Type Severity Reaction Status Date / Time cephalexin monohydrate * Allergy Hives Verified 01/28/16 01:14 [From [employer]] - Social History Does the pt smoke?: No Smoking Status: Never smoker Does the pt drink ETOH?: Yes Does the pt have substance abuse?: No - Immunizations Immunizations are current?: Yes - POLST Patient has POLST: No POLST Status: Full Code PD ED PE NORMAL - Vitals Vital signs reviewed: Yes - General General: No acute distress, Other (She is actually alert and oriented 3, a little somnolent, it takes her about 5 minutes to come up with the date though. She does not know why she is here.) - HEENT HEENT: PERRL, EOMI - Neck Neck: Supple, no meningeal sign, No bony TTP - Cardiac Cardiac: RRR, No murmur - Respiratory Respiratory: No respiratory distress, Clear bilaterally - Abdomen Abdomen: Soft, Non tender - Back Back: No CVA TTP, No spinal TTP - Extremities Extremities: No deformity, No tenderness to palpate, Other (Moderate pitting pedal edema of the left leg and mild of the right leg which is chronic per the ) NIHSS - Time Time: 17:30 - Level of Consciousness Level of consciousness: (1) Not alert, but arousable by minor stimulation to obey, or answer LOC Questions: (0) Answers both Q's correct LOC Commands: (0) Performs both correctly - Gaze Best Gaze: (0) Normal - Visual Visual: (0) No loss - Facial Palsy Facial Palsy: (0) Normal, symmetrical movement - Motor Arms (both separate) Motor Arm (right): (0) No drift Motor Arm (left): (0) No drift - Motor Legs (both separate) Motor Leg (right): (0) No drift Motor Leg (left): (0) No drift - Limb Ataxia Limb Ataxia: (0) Absent - Sensory Sensory: (0) Normal - Best Language Best Language: (0) No aphasia - Dysarthria Dysarthria: (0) Normal - Extinction and Inattention (formally neg Extinction and inattention: (0) No abnormality - Total Score/Results Total Score/Result: 1 Results - Vitals Vitals: Vital Signs - 24 hr 07/09/17 16:46 Temperature 36.0 C L Heart Rate 78 Respiratory 14 Rate Blood Pressure 144/93 H O2 Saturation 98 Oxygen O2 Source Room air - Labs Labs: Laboratory Tests 07/09/17 07/09/17 07/09/17 17:35 17:35 17:35 WBC 5.6 RBC 4.17 L Hgb 13.0 Hct 37.9 MCV 90.9 MCH 31.1 H MCHC 34.2 RDW 15.6 H Plt Count 203 MPV 8.6 Neut # 4.7 Lymph # 0.5 L [place] # 0.4 Eos # 0.0 Baso # 0.0 Absolute Nucleated RBC 0.00 Nucleated RBC % 0.0 Sodium 130 L Potassium 3.9 Chloride 92 L Carbon Dioxide 28 Anion Gap 10.0 BUN 20 Creatinine 0.5 Estimated GFR (MDRD) 120 Glucose 87 Calcium 9.9 Magnesium 1.8 Total Bilirubin 0.9 AST 38 ALT 30 Alkaline Phosphatase 138 H Ammonia Total Protein 7.2 Albumin 3.8 Globulin 3.4 Albumin/Globulin Ratio 1.1 Lipase 29 TSH 2.90 Salicylates < 6.0 Acetaminophen < 10 L Ethyl Alcohol < 5.0 07/09/17 17:35 WBC RBC Hgb Hct MCV MCH MCHC RDW Plt Count MPV Neut # Lymph # [place] # Eos # Baso # Absolute Nucleated RBC Nucleated RBC % Sodium Potassium Chloride Carbon Dioxide Anion Gap BUN Creatinine Estimated GFR (MDRD) Glucose Calcium Magnesium Total Bilirubin AST ALT Alkaline Phosphatase Ammonia 10.3 Total Protein Albumin Globulin Albumin/Globulin Ratio Lipase TSH Salicylates Acetaminophen Ethyl Alcohol - Rads (name of study) CT Head Radiology: EMP read contemporaneously (normal) PD MEDICAL DECISION MAKING - ED course ED course: 77-year-old woman presents with an acute unexplained delirium that is recurrent phenomenon. No obvious etiology on today's workup. Spoke with Dr. Mercado for observation at 7:11 PM. Departure - Departure Disposition: ED Place in Observation Clinical Impression: Hyponatremia Altered mental status Qualifiers: Altered mental status type: delirium Qualified Code(s): R41.0 - Disorientation , unspecified Condition: Serious
[2017-07-09] MEDS ORDERED: SODIUM CHLORIDE FLUSH 0.9% 10 ML SYRINGE IVP ONE (17:45)
[2017-07-09 17:50] LABS: BASOPHILS % (AUTO) 0.6 %; EOSINOPHILS % (AUTO) 0.2 %; HCT - HEMATOCRIT 37.9 % (37.0-47.0); LYMPHOCYTES # (AUTO) 0.5 10^3/uL (1.5-3.5); LYMPHOCYTES % (AUTO) 8.8 %; MEAN CORPUSCULAR HEMOGLOBIN 31.1 pg (27.0-31.0); MEAN CORPUSCULAR HGB CONC 34.2 g/dL (32.0-36.0); MEAN CORPUSCULAR VOLUME 90.9 fL (81.0-99.0); MEAN PLATELET VOLUME 8.6 fL (7.9-10.8); MONOCYTES # (AUTO) 0.4 10^3/uL (0.0-1.0); MONOCYTES % (AUTO) 6.3 %; NEUTROPHILS # (AUTO) 4.7 10^3/uL (1.5-6.6); NEUTROPHILS % (AUTO) 84.1 %; RED BLOOD COUNT 4.17 10^6/uL (4.20-5.40); RED CELL DISTRIBUTION WIDTH 15.6 % (12.0-15.0); UNCORRECTED WHITE BLOOD COUNT 5.6 x10^3/uL; WHITE BLOOD COUNT 5.6 x10^3/uL (4.8-10.8)
[2017-07-09 18:01] LABS: ALBUMIN/GLOBULIN RATIO 1.1 (1.0-2.2); BILIRUBIN,TOTAL 0.9 mg/dL (0.2-1.0); BUN - BLOOD UREA NITROGEN 20 mg/dL (6-20); CALCIUM 9.9 mg/dL (8.5-10.3); CARBON DIOXIDE - CO2 28 mmol/L (21-32); CHLORIDE 92 mmol/L (101-111); CREATININE 0.5 mg/dL (0.4-1.0); GFR - MDRD 120 (>89); GLUCOSE 87 mg/dL (70-100); LIPASE 29 U/L (22-51); MAGNESIUM 1.8 mg/dL (1.7-2.8); POTASSIUM 3.9 mmol/L (3.5-5.0); SALICYLATE < 6.0 mg/dL; SODIUM 130 mmol/L (135-145); TOTAL PROTEIN 7.2 g/dL (6.7-8.2)
[2017-07-09 18:02] LABS: ACETAMINOPHEN < 10 ug/mL (10-30)
--- NOTE | 2017-07-09 18:31 | CT Preliminary Report ---
Exam: CT Head W/O IMPRESSION: No acute intracranial CT abnormality. [facility] SITE ID: [id number]
--- NOTE | 2017-07-09 18:32 | CT Report ---
EXAM: CT HEAD EXAM DATE: 07/09/2017 06:05 PM. CLINICAL HISTORY: Confusion COMPARISON: None. TECHNIQUE: Multiaxial CT images were obtained from the foramen magnum to the vertex. IV contrast: Non e. Reformats: Coronal. In accordance with CT protocol optimization, one or more of the following dose reduction techniques w ere utilized for this exam: automated exposure control, adjustment of mA and/or KV based on patient s ize, or use of iterative reconstructive technique. FINDINGS: Parenchyma: No intraparenchymal hemorrhage. No evidence of mass, midline shift, or CT findings of acu te infarction. Mild periventricular white matter hypodensity may represent small vessel ischemic dise ase. Extraaxial Spaces: Normal for age. No subdural or epidural collections identified. Ventricles: Normal in size and position. Sinuses: Imaged paranasal sinuses, orbits, and mastoids show no significant abnormality. Bones: No evidence of fracture or calvarial defect. Other: None. IMPRESSION: No acute intracranial CT abnormality. [facility] Referring Provider Line: [phone] SITE ID: [id number]
[2017-07-09] MEDS ORDERED: ONDANSETRON 4 MG/2 ML VIAL IVP PRN (19:52)
[2017-07-09] MEDS ORDERED: IBUPROFEN 600 MG TABLET PO PRN (19:52)
[2017-07-09 19:53] LABS: BILIRUBIN,URINE NEGATIVE (NEGATIVE)
[2017-07-09 20:01] LABS: UA w/ MICROSCOPIC CHARGE YES
[2017-07-09 20:13] LABS: UR CULTURE IF IND INDICATED; WBC,URINE >25 /HPF (0-5)
[2017-07-09] MEDS ORDERED: LACTULOSE 10 GM /15 ML UDC PO PRN (20:15)
[2017-07-09] MEDS ORDERED: GABAPENTIN 300 MG CAPSULE PO SCH (21:00)
--- NOTE | 2017-07-09 21:20 | XRAY Preliminary Report ---
Exam: XR Chest 1 View IMPRESSION: Large heart without CHF or acute pulmonary abnormality. [facility] SITE ID: [id number]
--- NOTE | 2017-07-09 21:23 | XRAY Report ---
EXAM: CHEST RADIOGRAPHY EXAM DATE: 07/09/2017 08:30 PM. CLINICAL HISTORY: Leg edema. Hyponatremia. COMPARISON: None. TECHNIQUE: 1 view. FINDINGS: Lungs/Pleura: No focal opacities evident. No pleural effusion. No pneumothorax. Mediastinum: Large heart. Other: No bony abnormalities noted. IMPRESSION: Large heart without CHF or acute pulmonary abnormality. [facility] Referring Provider Line: [phone] SITE ID: [id number]
[2017-07-09] MEDS: CIPROFLOXACIN 400 MG/200 ML 200 ML IV SCH (21:51)
[2017-07-09] MEDS: SODIUM CHLORIDE FLUSH 0.9% 10 ML SYRINGE IVP SCH (22:17)
[2017-07-09] MEDS: SODIUM CHLORIDE FLUSH 0.9% 10 ML SYRINGE IVP PRN (22:17)
--- NOTE | 2017-07-10 01:35 | HISTORY & PHYSICAL EXAMINATION ---
DATE OF ADMISSION: 07/09/2017 DATE 07/09/2017. It is now 8:30 p.m. CODE STATUS IS FULL CODE. PRIMARY CARE DOCTOR: Dr. Gerardo Ramirez EXAM LIMITATIONS: Extreme confusion. Records were reviewed. SOURCE OF INFORMATION: The patient. CHIEF COMPLAINT: Confusion. No, the patient does not have an advanced directive. HISTORY OF PRESENT ILLNESS: The patient, a 77-year-old white female, presents to the ER with extreme confusion that began yesterday. It was difficult obtaining a history from this patient. She is lethargic. DRUG ALLERGIES: CEPHALEXIN. MEDICATIONS: 1. Tylenol 325 mg 1 tab p.o. q.6h. 2. Ativan 2 mg p.o. at bedtime. PAST MEDICAL HISTORY: Complex regional pain syndrome with pain in the left hip and left leg, chronic constipation, osteoarthritis, peripheral neuropathy, previous history of syncope, delirium, anxiety and migraine headaches. PAST SURGICAL HISTORY: Tonsillectomy, adenoidectomy, and hip replacement. FAMILY HISTORY: Noncontributory. SOCIAL HISTORY: She is . She has 2 living children. 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 She never smoked. She does not drink alcohol. She does not take recreational drugs. She lives at home with her . REVIEW OF SYSTEMS: RESPIRATORY: No complaints of coughing or shortness of breath. HEART: No complaints of palpitations or chest pain. ABDOMEN: No complaints of constipation, diarrhea, bloating, nausea or vomiting or abdominal pain. URINARY SYSTEM: No complaints of frequency or burning urine, had no complaints of headaches. EYES: No complaints of blurred vision. EARS: No complaints of ear pain or tinnitus. NOSE: No complaints of runny nose. THROAT: No complaint of redness or pain. MUSCULOSKELETAL: Left hip pain. JOINTS: No joint pain. She uses a wheelchair at home. NEUROLOGICAL: Confusion and tremor, weakness and fatigue is yes and fever is no. PHYSICAL EXAMINATION: VITAL SIGNS: Temperature 36 degrees, pulse of 78, a respiratory rate of 14, a blood pressure of 144/93, O2 saturation of 98%. GENERAL: She is alert and confused. HEENT: Head is atraumatic, normocephalic. Eyes are PERRLA, EOMI. NECK: Supple. No JVD, no bruits, no thyroid enlargement. No adenopathy. HEART: RRR. LUNGS: Clear to auscultation. ABDOMEN: Positive for bowel sounds, soft, nontender. No rebound, no guarding. EXTREMITIES: Warm. She has +2 pitting edema and 5/5 muscle strength in lower extremities and 5/5 muscle strength in upper extremities. NEUROLOGIC: She is oriented to person, only. Follows commands. Cranial nerves 2- 12 are intact. She moves all 4 extremities. She has a tremor. LABORATORY DATA: On labs, her sodium is 130, potassium is 3.9, chloride is 92, bicarbonate is 28, BUN 20, creatinine 0.5, glucose is 87. White blood cells are 5.6, hemoglobin is 13, hematocrit 37.9, platelets are 203,000. Ammonia is 10.3. Alkaline phosphatase is 138, AST is 38, ALT is 30, albumin is 3.8. TSH is 2.9. Glomerular filtration rate is 120. Her BNP is 144. Her troponin is less than 0.04. Her CT of head shows no acute intracranial abnormality. DIAGNOSES: 1. Metabolic encephalopathy with an altered mental status. She will get an EKG, neurological checks every 2-4 hours. She will be on telemetry. She will get an echocardiogram in a.m. She will get troponins q.8h. x3 to check for NH. She will get a UA, urine culture and sensitivity and she will get a chest x-ray in the morning. 2. Hyponatremia. She will get Lasix 20 mg every day to correct the hyponatremia and correct the leg edema. 3. Her peripheral neuropathy will be treated with gabapentin. 4. Her hypertension will be treated with lisinopril and furosemide. 5. Her osteoarthritis will be treated with Motrin. 6. For constipation, she will receive lactulose. 7. For deep venous thrombosis prophylaxis, she will be on subcutaneously Lovenox and sequential compression devices and she will get intravenous Protonix to prevent stress ulcers. 8. UTI that will be treated with IV Cipro and po erythromycin. 9. Pitting leg edema will be treated with SCD and IV lasix. Her anticipated length of stay is less than 2 days. JOB #: [id number] EXT JOB #:[id number] FABIO
[2017-07-10 03:15] LABS: BASOPHILS % (AUTO) 1.3 %; EOSINOPHILS % (AUTO) 0.7 %; HCT - HEMATOCRIT 36.3 % (37.0-47.0); HGB - HEMOGLOBIN 12.2 g/dL (12.0-16.0); LYMPHOCYTES # (AUTO) 0.6 10^3/uL (1.5-3.5); LYMPHOCYTES % (AUTO) 16.9 %; MEAN CORPUSCULAR HGB CONC 33.7 g/dL (32.0-36.0); MEAN CORPUSCULAR VOLUME 92.2 fL (81.0-99.0); MEAN PLATELET VOLUME 8.3 fL (7.9-10.8); MONOCYTES # (AUTO) 0.3 10^3/uL (0.0-1.0); MONOCYTES % (AUTO) 8.6 %; NEUTROPHILS # (AUTO) 2.5 10^3/uL (1.5-6.6); NEUTROPHILS % (AUTO) 72.5 %; NUCLEATED RED BLOOD CELLS AUTO 0.1 /100WBC; RED BLOOD COUNT 3.94 10^6/uL (4.20-5.40); RED CELL DISTRIBUTION WIDTH 15.4 % (12.0-15.0); UNCORRECTED WHITE BLOOD COUNT 3.4 x10^3/uL; WHITE BLOOD COUNT 3.4 x10^3/uL (4.8-10.8)
[2017-07-10 03:29] LABS: ALBUMIN/GLOBULIN RATIO 1.2 (1.0-2.2); BILIRUBIN,TOTAL 0.6 mg/dL (0.2-1.0); CALCIUM 9.9 mg/dL (8.5-10.3); CREATININE 0.5 mg/dL (0.4-1.0); TOTAL PROTEIN 6.5 g/dL (6.7-8.2)
[2017-07-10] MEDS: ERYTHROMYCIN BASE DR 250 MG TABLET PO SCH ×3 (03:57→06:49)
[2017-07-10] MEDS: SODIUM CHLORIDE FLUSH 0.9% 10 ML SYRINGE IVP PRN (06:48)
[2017-07-10] MEDS: SODIUM CHLORIDE FLUSH 0.9% 10 ML SYRINGE IVP SCH ×3 (06:48→20:51)
[2017-07-10] MEDS: ACETAMINOPHEN 325 MG TABLET PO PRN ×3 (06:48→20:52)
[2017-07-10] MEDS ORDERED: PANTOPRAZOLE 40 MG VIAL IVP SCH (07:00)
[2017-07-10] MEDS ORDERED: LISINOPRIL 5 MG TABLET PO SCH (09:00)
[2017-07-10] MEDS ORDERED: FUROSEMIDE 20 MG/2 ML VIAL IVP SCH (09:00)
[2017-07-10] MEDS: POLYETHYLENE GLYCOL 3350 17 GM PACKET PO SCH (09:13)
[2017-07-10] MEDS: CIPROFLOXACIN 400 MG/200 ML 200 ML IV SCH ×2 (09:13→20:51)
--- NOTE | 2017-07-10 09:28 | PROVIDER PROGRESS NOTE ---
Subjective - Prog Note Date Prog Note Date: 07/10/17 Prog Note Time: 09:26 (seen 0730) - Subjective Subjective: Per she is similar to prior presentations, slow to respond but once she does, she is oriented with accurate responses reports she has not had a BM since the last admission when they went to a colon cleanse "specialist" No recent change in medications Denies that she is on BP meds at home Has not had much of anything to eat last 36 hrs Current Medications - Current Medications Current Medications: Active Medications Generic Name Dose Route Start Last Admin Trade Name Freq PRN Reason Stop Dose Admin Acetaminophen 650 mg 07/09/17 19:52 07/10/17 12:48 Tylenol PO 650 mg Q4HR PRN Administration Pain 1 to 4 Gabapentin 300 mg 07/09/17 21:00 07/09/17 22:49 Neurontin PO Not Given QPM CARLA Ciprofloxacin 200 mls @ 200 mls/hr 07/09/17 21:00 07/10/17 09:13 Cipro 400 Mg/200 Ml IV 200 mls/hr Q12H CARLA Administration Lactulose 10 gm 07/10/17 14:00 Enulose PO BID CARLA Lisinopril 5 mg 07/10/17 09:00 07/10/17 09:13 Zestril PO 5 mg DAILY CARLA Administration Ondansetron HCl 4 mg 07/09/17 19:52 Zofran Inj IVP Q6HR PRN Nausea / Vomiting Polyethylene Glycol 17 gm 07/10/17 09:00 07/10/17 09:13 Miralax PO 17 gm DAILY CARLA Administration Sodium Chloride 10 ml 07/09/17 19:52 07/10/17 06:48 Normal Saline Flush 0.9% IVP 10 ml PRN PRN Administration NEEDED PER PROVIDER ORDERS Sodium Chloride 10 ml 07/09/17 22:00 07/10/17 06:48 Normal Saline Flush 0.9% IVP 10 ml Q8HR CARLA Administration Acetaminophen [Tylenol] 325 mg PO Q6H PRN 04/26/13 LORazepam [Ativan] 2 mg PO HS 04/26/13 Gabapentin [Gabapentin] 100 mg PO TID 07/10/17 Objective - Vital Signs/Intake & Output Reviewed Vital Signs: Yes Vital Signs: Vital Signs x48h Temp Pulse Resp BP Pulse Ox 07/10/17 06:00 36.6 C 70 16 156/100 H 96 Intake & Output: Intake & Output 07/07/17 07/08/17 07/09/17 07/10/17 23:59 23:59 23:59 23:59 Intake Total 200 250 Output Total 700 Balance 200 -450 - Objective General Appearance: positive: Other (lying in bed, awake , very slow to respond , but when she does she answers correctly ([place] , July, begininning of the Month, ) Frail appearing, thin Later in shift she was quicker to respond, rolls over for me in bed for rectal) Eyes Bilateral: positive: Normal inspection, EOMI ENT: positive: Other Neck: positive: No JVD Respiratory: positive: No respiratory distress, Breath sounds nml. negative: Rales Cardiovascular: positive: Regular rate & rhythm, No murmur Abdomen: positive: Nml bowel sounds, No distention, Other (mildy rounded). negative: Tenderness Skin: positive: Warm, Dry Extremities: positive: Pedal edema, Other (pedal edema 1-2 + w/ some wrinkling, states chronic r.t her regional pain syndrome, 1+ pretibial) Neurologic/Psychiatric: positive: Oriented x3 (slow to respond but answers are accurate,), Mood/affect nml (very flat affect Per RN, she is extremely particular re: positioning) - Lab Results Fish Bones: 07/10/17 03:05 07/11/17 06:25 Other Labs: Lab Results x24hrs 07/10/17 07/10/17 07/10/17 Range/Units 03:05 03:05 03:05 WBC 3.4 L (4.8-10.8) x10^3/uL RBC 3.94 L (4.20-5.40) 10^6/uL Hgb 12.2 (12.0-16.0) g/dL Hct 36.3 L (37.0-47.0) % MCV 92.2 (81.0-99.0) fL MCH 31.0 (27.0-31.0) pg MCHC 33.7 (32.0-36.0) g/dL RDW 15.4 H (12.0-15.0) % Plt Count 201 (130-450) 10^3/uL MPV 8.3 (7.9-10.8) fL Neut # 2.5 (1.5-6.6) 10^3/uL Lymph # 0.6 L (1.5-3.5) 10^3/uL Menard # 0.3 (0.0-1.0) 10^3/uL Eos # 0.0 (0.0-0.7) 10^3/uL Baso # 0.0 (0.0-0.1) 10^3/uL Absolute Nucleated RBC 0.00 x10^3/uL Nucleated RBC % 0.1 /100WBC Sodium 133 L (135-145) mmol/L Potassium 4.0 (3.5-5.0) mmol/L Chloride 92 L (101-111) mmol/L Carbon Dioxide 29 (21-32) mmol/L Anion Gap 12.0 (6-13) BUN 16 (6-20) mg/dL Creatinine 0.5 (0.4-1.0) mg/dL Estimated GFR (MDRD) 120 (>89) Glucose 74 (70-100) mg/dL Calcium 9.9 (8.5-10.3) mg/dL Total Bilirubin 0.6 (0.2-1.0) mg/dL AST 37 (10-42) IU/L ALT 29 (10-60) IU/L Alkaline Phosphatase 130 H (42-121) IU/L Troponin I < 0.04 (<0.49) ng/mL Total Protein 6.5 L (6.7-8.2) g/dL Albumin 3.5 (3.2-5.5) g/dL Globulin 3.0 (2.1-4.2) g/dL Albumin/Globulin Ratio 1.2 (1.0-2.2) - Diagnostic Imaging Diagnostic Imaging Comments: 12 lead EKG compared with old unchanged NSR Rate [address] elevation anterior leads, looks more like J point elevation Jpoint elevation no change from 2015 or 06/2017 collaborating supervising physician suggests old ant LA, but there are small r's, these appear to be deep S V1-3, LVH Assessment/Plan - Problem List (1) Acute delirium Impression: Hypoactive delerium; most likley related to UTI (has prior similar presentations with this metabolic encephalopathy/hypoactive, but has not had Uti before) already with quicker responsiveness later in shift having received antibiotic She did not worsen with diruesis, and is acutally more alert, later in shift will push PO fluids for now rather than dani the diuretic with IVF She does not appear overly dry on labs. Suspect will be able to d/c tomorrow on PO abx, No indication for GI prophylaxis on this patient Stop IV protonix (2) Urinary tract infection Impression: + UA with symptoms consistent with UTI in elderly/ hypoactive delerium hope to have early sensitivies in am hope to d/c on PO ABX in am if continues to look this good (3) Heart failure with preserved ejection fraction Impression: EF 40-45% chest clear, no oxygen requirement, can lie flat, BNP < 177 Do not suspect her symptoms reflect decompensated heart failure (although her BP is elevaetd0 low dose ACEI started; defer titration to PCP recheck Cr in am STop prn NSAID added on admission (4) Chronic constipation Impression: Does not take miralax consistently per no BM at least 2 weeks, not impacted on rectal, not nauseated, + Bowel sounds, no significant distention Took miralax today, refused mineral oil enema will use bid lactulose as well til BM (5) Chronic left hip pain Impression: Patient is mostly in a wheel chair at home, denies need for PT eval at this point
[2017-07-10] MEDS: LACTULOSE 10 GM /15 ML UDC PO SCH ×2 (14:53→20:51)
[2017-07-10] MEDS ORDERED: SODIUM CHLORIDE 0.9% 1,000 ML IV ONE (18:31)
[2017-07-10] MEDS ORDERED: SODIUM CHLORIDE 0.9% 1,000 ML IV SCH (19:00)
[2017-07-10] MEDS ORDERED: diphenhydrAMINE 25 MG CAPSULE PO PRN (23:48)
[2017-07-11] MEDS: SODIUM CHLORIDE FLUSH 0.9% 10 ML SYRINGE IVP SCH ×2 (05:32→10:53)
[2017-07-11 06:41] LABS: CALCIUM 9.3 mg/dL (8.5-10.3); CREATININE 0.5 mg/dL (0.4-1.0); POTASSIUM 3.4 mmol/L (3.5-5.0)
--- NOTE | 2017-07-11 08:16 | Discharge Plan ---
Discharge Plan Disposition: Home, Self Care Condition: Stable Prescriptions: Lisinopril [Zestril] 2.5 mg PO DAILY #30 tablet Sulfamethox/Trimeth 800/160 [Bactrim Ds 800/160] 1 each PO BID #11 tablet Diet: Regular Activity Restrictions: Activity as Tolerated Shower Restrictions: No Driving Restrictions: Yes Assistance Devices: Wheelchair Weight Bearing: Full Weight Instruction Topics: Sulfamethoxazole Trimethoprim SMX-TMP tablets, Lisinopril tablets, UTI Additional Instructions or Follow Up instructions: You came to the hospital because of lethargy, decreased responsiveness similar to what you have had in the past. The culprit this time seems to clearly be a urinary tract infection and 'volume depletion" (dehydration) due to the urinary tract infection . You improved much with the start of antibiotics and hydration. Chest XRay was clear Head CT showed no acute abnormality The urine culture is finalized Thursday morning. The infecting organism is Klebsiella Pneumoniae (a gram negative bacillus). This is an organism that can be acquired in hospitals or other inpatient health care settings (as opposed to the more common ecoli.) It is sensitive to most antibioticsi You have already received 2 days of antibiotic (IV ) the hospital You will complete 5 more days of antibiotic thru 07/16 . twice daily Bactrim ( including todays PM dose) You may call Dr. Ramirez at the completion of 3 more days (5 full days including the 2 days of IV in the hospital); If feeling 100%, you may be able to stop antibiotic treatment after 5 says. "Diastolic" congestive heart failure. When you were here in June, an echocardiogram showed an "ejection fraction" (how much blood the left ventricle pumps forward of 40-45%. and some reduced motion of the base, back and part of the wall of the left chamber. You also have signs of a thick left ventricle on your EKG You do not have any current decompensation of this heart failure , but you are being started on a low dose of lisinopril. This is a blood pressure medication , but is also to help the heart Dr. Ramirez will reevaluate your blood pressure and may titrate the dose to 5 mg daily (or higher) Constipation; We recommend a REGULAR bowel regimen, 1 daily miralax and senna 1 -2 tabs 1-2 x daily (more effective than colace) No Smoking: If you smoke, Please STOP! Call for help. Follow-up with: Josselin Ramirez MD [Primary Care Provider] - 1 Week (reevaluate BP on low dose ACEI, consider titrate to 5mg recheck u/a Ensure clear)
[2017-07-11 08:20] VITALS: BP 151/90
[2017-07-11] MEDS ORDERED: LISINOPRIL 5 MG TABLET PO SCH (08:20)
[2017-07-11] MEDS: LACTULOSE 10 GM /15 ML UDC PO SCH (08:57)
[2017-07-11] MEDS: CIPROFLOXACIN 400 MG/200 ML 200 ML IV SCH (08:58)
[2017-07-11] MEDS: POLYETHYLENE GLYCOL 3350 17 GM PACKET PO SCH (08:59)
[2017-07-11] MEDS ORDERED: SODIUM CHLORIDE 0.9% 1,000 ML IV SCH (09:00)
--- NOTE | 2017-07-11 12:01 | DISCHARGE SUMMARY ---
Discharge Summary Admit Date: 07/10/17 Discharge Date: 07/11/17 Discharging Provider: HERB Carmicheal Primary Care Provider: Dr. Josselin Ramirez Code Status: Attempt Resuscitation Condition at Discharge: Stable Discharge Disposition: 01 Home, Self Care - DIAGNOSES Admission Diagnoses: Urinary tract infection Metabolic encephalopathy/ hypoactive delerium due to UTI Mild hyponatremia Hypertension Discharge Diagnoses with Status of Each Condition: Klebsiella Pneumoniae urinary tract infection Metabolic encephalopathy/hypoactive delerium related to urinary tract infection ; RESOLVED hypertension; improved Hyponatremia/ chronic , stable - CONSULTS | PROCEDURES Consultations: none Procedures: none - HOSPITAL COURSE Hospital Course: Klebsiella pneumoniae cystitis; Ms Baker is a 77 yo female who was brought to the hospital by her due to increased lethargy. She has had similar presentations in the past with no clear cause. She was afebrile, hemodynamically stable (actually hypertensive), no leukocytosis . On this presentation, although she had not had prior UTI'dominick urinalysis on presentation was suggestive of UTI with significant pyuria and bacteruira. She started IV cipro and was hydrated , and her mentation was markedly improved and at baseline after 36 hrs. The urine culture grew Klebsiella pneumonia/ pansensitive. She was hospitalized for over a week at [facility] a few months ago,which may have been the exposure to Klebsiella. She is prescribed bactrim for 5 additional days for total of 7 days (since admission). Current infectious disease recommendations are for shorter courses of antibiotic. Initially when it was thought this would just be ecoli, a total of 5 days were planned, but since this was Klebsella and the RAIZA for bactrim is 20, will give her 7 days. If she is 100 % improved after 5 days, it would be reasonable to stop then, and recheck ua. given recent black box warnings on quinolones; since the klebsiella was pansensitive, bactrim was chosen as the oral agent 2)diastolic dysfunction and hypertension On a recent 06/29 echocardiogram, she was noted to have an EF of 40-45%, with some areas of mild hypokinesis. Her blood pressure was elevated ~ 150/100 on presentatiion, and EKG with LVH findings Low dose ACEI was started at 2.5 mg / day. (started conservatively given her history of inexplicable mentation changes. On follow up if BP allows, can titrate to 5mg 145/92, 151/90 on discharge 3) Hyponatremia; she has chronic hyponatremia, and in reviewing past labs, her baseline appears to be low 130's It was 133 on admission and 132 on discharge 4)Chronic constipation; Patient recently had colonic therapy. Patient is not on regular regimen for bowels at home. Her abdomen was not distended , she had active bowel sounds, there was no fecal impaction and she was tolerating PO. She / were advised to use the miralax regualrly and that senna 1-2 daily or bid was more effective than colace which they sometimes use. - ALLERGIES Allergies/Adverse Reactions: Allergies Allergy/AdvReac Type Severity Reaction Status Date / Time cephalexin monohydrate * Allergy Hives Verified 01/28/16 01:14 [From [facility]] - MEDICATIONS Home Medications: Ambulatory Orders Medication Instructions Recorded Confirmed Acetaminophen [Tylenol] 325 mg PO Q6H PRN 04/26/13 07/09/17 LORazepam [Ativan] 2 mg PO HS 04/26/13 07/09/17 Lisinopril [Zestril] 2.5 mg PO DAILY #30 tablet 07/11/17 Polyethylene Glycol 3350 [Miralax] 17 gm PO DAILY packet 07/11/17 Sulfamethox/Trimeth 800/160 1 each PO BID #11 tablet 07/11/17 [Bactrim Ds 800/160] - PHYSICAL EXAM AT DISCHARGE General Appearance: positive: No acute distress, Other (awake, alert, animated, much quicker to respond than on 2016, july, 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 negative: Wheezes, Rales, Rhonchi Cardiovascular: positive: Regular rate & rhythm, No murmur Abdomen: positive: No distention, Other (slightly rounded, + bowel sounds). negative: Tenderness Skin: positive: Warm, Dry, Other (+1 edema bilateral LE, mild wrinkling) Neurologic/Psychiatric: positive: Oriented x3, Other ( in, Patient showered, is grooming herself up in chair currently, per she is back to "herself") - LABS Result Diagrams: 07/10/17 03:05 07/11/17 06:25 Other Lab Results: admission Chem Na 130 K 3.9 Cl 92 bicarb 28 BUN 20 cr 0.5 Glu 87 WBC 5.6 hgb 13, hct 38 plt 203K Nh3 10.3 Alk phos 138 At 38, ALT 30, alb 3.8,, TSHH 2.9 troponins << 0.04 x 3 12 lead EKG; NSR w/ Left axis Rate [address] elevations anteriorly V2, V3 monitor suggests old anterior LA, Pt denies, and there is a small R (this appears to be a deep S rather than Q LVH, nchanged compared w06/29/2017 - FOLLOW UP Follow Up: Per patients she already has follow up with Dr. Ramirez scheduled for next Thursday 10 13 If patient symptoms are 100% resolved after Day 5 of antibiotics 07/14, could consider d/c antibiotics then (for reduced risk of complications) REcheck blood pressure, titrate ACEI as warranted - TIME SPENT Time Spent in Discharge (Minutes): 35
== END 2017-07-11 12:54 | disposition home or self-care (01) | DRG 690 ==
LOC: ED 16:41 → OBS 19:52 → OBSVTOIN 07-10 13:33 → MS2 07-10 14:38
PROVIDERS: ATTEND Nurse Practitioner
DX: G93.41 Metabolic encephalopathy (principal); N30.90 Cystitis, unspecified without hematuria; G62.9 Polyneuropathy, unspecified; E87.1 Hypo-osmolality and hyponatremia; M19.90 Unspecified osteoarthritis, unspecified site; I50.42 Chronic combined systolic (congestive) and diastolic (congestive) heart failure; N39.0 Urinary tract infection, site not specified; R60.0 Localized edema; F41.9 Anxiety disorder, unspecified; Z99.3 Dependence on wheelchair; Z96.649 Presence of unspecified artificial hip joint; B96.1 Klebsiella pneumoniae [K. pneumoniae] as the cause of diseases classified elsewhere; I11.0 Hypertensive heart disease with heart failure; K59.09 Other constipation
CPT/HCPCS: 36415; 51701; 70450; 71010; 80048; 80053; 80306; 80307; 80320; 80329; 81001; 81003; 82140; 83690; 83735; 83880; 84443; 84484; 85025; 86780; 87077; 87086; 93005; 96365; 96366; 96375; 99283; 99285

== ENCOUNTER 2017-07-21 13:21 | Outpatient (CLI) | payer MEDICARE, OTHER ==
[2017-07-22 13:49] LABS: BILIRUBIN,URINE NEGATIVE (NEGATIVE); UA w/ MICROSCOPIC CHARGE YES
[2017-07-22 13:54] LABS: UR CULTURE IF IND NOT INDICATED
== END 2017-07-21 13:22 | disposition home or self-care (01) ==
LOC: LAB.R 13:21
PROVIDERS: ATTEND Family Medicine
DX: E86.0 Dehydration (principal); N39.0 Urinary tract infection, site not specified
CPT/HCPCS: 81001; 81003; 87086

== ENCOUNTER 2017-07-22 13:23 | Outpatient (CLI) | payer MEDICARE, OTHER | END 2017-07-22 13:24 | disposition home or self-care (01) | LOC: LAB.R 13:23 | PROVIDERS: ATTEND Orthopaedic Surgery | DX: E86.0 Dehydration (principal); N39.0 Urinary tract infection, site not specified | CPT/HCPCS: 87086 ==

== ENCOUNTER 2017-07-24 15:33 | Inpatient (IN) | payer MEDICARE, OTHER ==
[2017-07-24 16:08] LABS: BASOPHILS % (AUTO) 0.6 %; EOSINOPHILS % (AUTO) 0.2 %; HCT - HEMATOCRIT 37.4 % (37.0-47.0); HGB - HEMOGLOBIN 12.4 g/dL (12.0-16.0); LYMPHOCYTES # (AUTO) 0.8 10^3/uL (1.5-3.5); LYMPHOCYTES % (AUTO) 20.6 %; MEAN CORPUSCULAR HEMOGLOBIN 30.5 pg (27.0-31.0); MEAN CORPUSCULAR HGB CONC 33.2 g/dL (32.0-36.0); MEAN PLATELET VOLUME 9.4 fL (7.9-10.8); MONOCYTES # (AUTO) 0.2 10^3/uL (0.0-1.0); MONOCYTES % (AUTO) 5.6 %; NEUTROPHILS # (AUTO) 2.7 10^3/uL (1.5-6.6); NUCLEATED RED BLOOD CELLS AUTO 0.1 /100WBC; RED BLOOD COUNT 4.06 10^6/uL (4.20-5.40); RED CELL DISTRIBUTION WIDTH 15.4 % (12.0-15.0); UNCORRECTED WHITE BLOOD COUNT 3.7 x10^3/uL; WHITE BLOOD COUNT 3.7 x10^3/uL (4.8-10.8)
[2017-07-24 16:24] LABS: ALBUMIN/GLOBULIN RATIO 1.3 (1.0-2.2); BILIRUBIN,TOTAL 0.8 mg/dL (0.2-1.0); CALCIUM 9.9 mg/dL (8.5-10.3); CREATININE 0.7 mg/dL (0.4-1.0); POTASSIUM 4.1 mmol/L (3.5-5.0)
--- NOTE | 2017-07-24 17:28 | ED Physician Documentation ---
History of Present Illness - Stated complaint Stated Complaint: FEMALE - Chief complaint Chief Complaint: Abd Pain - History obtained from History obtained from: Patient, Family - History of Present Illness Timing: How many weeks ago (1) Pain level max: 0 Pain level now: 0 Improved by: abx Worsened by: nothing - Additonal information Additional information: states altered mental status for 3 weeks, cleared with abx for UTI and now having AMS again. States repetitive questioning. Just repeats whatever is said to her. Review of Systems Unable to obtain: AMS PD PAST MEDICAL HISTORY - Past Medical History Cardiovascular: None Respiratory: None Neuro: None Endocrine/Autoimmune: None GI: None SANITARY CHEMIST: None : None HEENT: Chronic vision loss Psych: Anxiety Musculoskeletal: Osteoarthritis, Other Derm: Herpes zoster - Past Surgical History Past Surgical History: Yes Ortho: Hip replacement /SANITARY CHEMIST: Tubal ligation HEENT: Tonsil/Adenoidectomy - Present Medications Home Medications: Ambulatory Orders Medication Instructions Recorded Confirmed Acetaminophen [Tylenol] 325 mg PO Q6H PRN 04/26/13 07/24/17 LORazepam [Ativan] 2 mg PO HS 04/26/13 07/24/17 Lisinopril [Zestril] 2.5 mg PO DAILY #30 tablet 07/11/17 07/24/17 Polyethylene Glycol 3350 [Miralax] 17 gm PO DAILY packet 07/11/17 07/24/17 - Allergies Allergies/Adverse Reactions: Allergies Allergy/AdvReac Type Severity Reaction Status Date / Time cephalexin monohydrate * Allergy Hives Verified 01/28/16 01:14 [From [employer]] - Social History Does the pt smoke?: No Smoking Status: Never smoker Does the pt drink ETOH?: Yes Does the pt have substance abuse?: No - Immunizations Immunizations are current?: Yes - POLST Patient has POLST: No POLST Status: Full Code PD ED PE NORMAL - Vitals Vital signs reviewed: Yes - General General: No acute distress, Well developed/nourished, Other (alert) - HEENT HEENT: Atraumatic, PERRL, Moist mucous membranes - Neck Neck: Supple, no meningeal sign - Cardiac Cardiac: RRR - Respiratory Respiratory: No respiratory distress, Clear bilaterally - Abdomen Abdomen: Soft, Non tender, Non distended - Back Back: No CVA TTP, No spinal TTP - Derm Derm: Warm and dry, No rash - Extremities Extremities: No edema - Neuro Neuro: Other (alert, but just repeats anything that is said to her) - Psych Psych: Normal affect Results - Vitals Vitals: Vital Signs - 24 hr 07/24/17 07/24/17 15:37 18:50 Temperature 35.8 C L 36.8 C Heart Rate 55 L 66 Respiratory 16 14 Rate Blood Pressure 130/94 H 152/79 H O2 Saturation 99 96 Oxygen O2 Source Room air - Labs Labs: Laboratory Tests 07/24/17 07/24/17 07/24/17 16:00 16:00 16:00 WBC 3.7 L RBC 4.06 L Hgb 12.4 Hct 37.4 MCV 92.0 MCH 30.5 MCHC 33.2 RDW 15.4 H Plt Count 161 MPV 9.4 Neut # 2.7 Lymph # 0.8 L Collier # 0.2 Eos # 0.0 Baso # 0.0 Absolute Nucleated RBC 0.00 Nucleated RBC % 0.1 Sodium 134 L Potassium 4.1 Chloride 98 L Carbon Dioxide 28 Anion Gap 8.0 BUN 37 H Creatinine 0.7 Estimated GFR (MDRD) 81 L Glucose 82 Calcium 9.9 Total Bilirubin 0.8 AST 51 H ALT 37 Alkaline Phosphatase 129 H Total Protein 7.0 Albumin 4.0 Globulin 3.0 Albumin/Globulin Ratio 1.3 Lipase 80 H Vitamin B12 617 Folate 10.04 Urine Color Urine Clarity Urine pH Ur Specific [place]minence Urine Protein Urine Glucose (UA) Urine Ketones Urine Occult Blood Urine Nitrite Urine Bilirubin Urine Urobilinogen Ur Leukocyte Esterase Urine RBC Urine WBC Ur Squamous Epith Cells Urine Bacteria Ur Microscopic Review Urine Culture Comments 07/24/17 17:25 WBC RBC Hgb Hct MCV MCH MCHC RDW Plt Count MPV Neut # Lymph # Collier # Eos # Baso # Absolute Nucleated RBC Nucleated RBC % Sodium Potassium Chloride Carbon Dioxide Anion Gap BUN Creatinine Estimated GFR (MDRD) Glucose Calcium Total Bilirubin AST ALT Alkaline Phosphatase Total Protein Albumin Globulin Albumin/Globulin Ratio Lipase Vitamin B12 Folate Urine Color YELLOW Urine Clarity HAZY Urine pH 6.0 Ur Specific [place] 1.020 Urine Protein NEGATIVE Urine Glucose (UA) NEGATIVE Urine Ketones NEGATIVE Urine Occult Blood NEGATIVE Urine Nitrite NEGATIVE Urine Bilirubin NEGATIVE Urine Urobilinogen 0.2 (NORMAL) Ur Leukocyte Esterase TRACE H Urine RBC 0-5 Urine WBC 11-25 H Ur Squamous Epith Cells MANY Squamous H Urine Bacteria Rare Ur Microscopic Review INDICATED Urine Culture Comments NOT INDICATED PD MEDICAL DECISION MAKING - ED course Complexity details: reviewed results, re-evaluated patient, considered differential, d/w patient ED course: Patient is a 77-year-old female who presents to the emergency department with recurrent altered mental status, appears to have UTI. Given Rocephin here. Last culture grew out Klebsiella. Patient had a recent CT scan which was negative. May benefit from an MRI. Discussed the case with Dr. Sotomayor, hospitalist who accepts This document was made in part using voice recognition software. While efforts are made to proofread this document, sound alike and grammatical errors may occur. Departure - Departure Disposition: [facility] DC/Xfer Clinical Impression: Echolalia, Urinary tract infection Altered mental status Qualifiers: Altered mental status type: unspecified Qualified Code(s): R41.82 - Altered mental status, unspecified Condition: Stable Discharge Date/Time: 07/24/17 21:04
[2017-07-24 17:49] LABS: BILIRUBIN,URINE NEGATIVE (NEGATIVE)
[2017-07-24 18:00] LABS: UA w/ MICROSCOPIC CHARGE YES
[2017-07-24 18:02] LABS: UR CULTURE IF IND NOT INDICATED
[2017-07-24] MEDS ORDERED: cefTRIAXone 1 GM VIAL IVP STA (18:32)
[2017-07-24] MEDS ORDERED: cefTRIAXone 1 GM VIAL ONE (18:49)
[2017-07-24] MEDS ORDERED: PROCHLORPERAZINE 10 MG/2 ML VIAL IVP PRN (20:05)
[2017-07-24] MEDS ORDERED: ONDANSETRON 4 MG/2 ML VIAL IVP PRN (20:05)
[2017-07-24] MEDS ORDERED: SODIUM CHLORIDE FLUSH 0.9% 10 ML SYRINGE IVP PRN (20:05)
[2017-07-24] MEDS ORDERED: oxyCODONE 5 MG TABLET PO PRN (20:05)
[2017-07-24] MEDS ORDERED: PROMETHAZINE 25 MG/1 ML VIAL IM PRN (20:05)
[2017-07-24] MEDS ORDERED: ACETAMINOPHEN 325 MG TABLET PO PRN (20:05)
[2017-07-24 21:02] LABS: FOLATE 10.04 ng/mL (5.90 - >24.8)
--- NOTE | 2017-07-24 21:28 | HISTORY & PHYSICAL EXAMINATION ---
Chief Complaint - Chief Complaint Chief Complaint: Altered mental status History of Present Illness - Admitted From Admitted From:: Emergency department - History Obtained From Records Reviewed: Yes History obtained from: Patient's , emergency room physician and medical records Exam Limitations: Patient altered and confused unable to provide any history - History of Present Illness HPI Comment/Other: Patient is a 77-year-old female with a past medical history significant for complex regional pain syndrome with pain in her left hip and left leg, peripheral neuropathy, chronic constipation, diffuse osteoarthritis and debility requiring the patient to be in a wheelchair she presented to the emergency department today secondary to altered mental status. The patient has been admitted to [facility] 2 times in the last 3 weeks once for syncope and metabolic encephalopathy and the other time for metabolic encephalopathy secondary to UTI. During her last admission the patient was found to have a urinary tract infection with Klebsiella pneumonia and she was treated with IV antibiotics in the hospital. The patient had improvement in her mental status and was discharged home on Bactrim. The patient just completed her course of Bactrim 6 days ago and the states that she seemed to recover to her normal mental status. However today the patient became altered and less responsive. He did not note any fevers or chills at home but brought in the patient to the emergency room as she was altered. The patient is unable to provide any review of systems secondary to her altered mental status. When spoken to the patient just repeats what ever I say to her and she is not following any commands. On presentation to the emergency department the patient is afebrile she was slightly bradycardic but otherwise vital signs are within normal limits. The patient's lab work did reveal a mild hyponatremia and a mildly elevated BUN. The patient had a mild leukopenia and her UA was positive for 11-25 WBCs and trace leukocyte Estrace. Given the patient's altered mental status and positive urine the patient was admitted to the hospital for urinary tract infection with metabolic encephalopathy. History - Past Medical History Cardiovascular: reports: None Respiratory: reports: None Neuro: reports: Headache/migraine, Peripheral neuropathy, Other (Complex regional pain syndrome) Endocrine/Autoimmune: reports: None GI: reports: None BUILDING AND CONSTRUCTION MANAGER: reports: None : reports: None HEENT: reports: Chronic vision loss Psych: reports: Anxiety Musculoskeletal: reports: Osteoarthritis, Other (Complex regional pain syndrome affecting left leg and left hip patient wheelchair-bound) Derm: reports: Herpes zoster MRSA Hx?: No - Past Surgical History Ortho: reports: Hip replacement /BUILDING AND CONSTRUCTION MANAGER: reports: Tubal ligation HEENT: reports: Tonsil/Adenoidectomy - Family & Social History Family History Comment/Other: Patient was adopted Living arrangement: At home Living Situation: With spouse/s.o. Social History Notes: The patient is originally from [facility], she and her retired and moved up to [facility] where 1 of third daughters lives. They currently live in [facility] [place] [facility]. The patient had 3 children 1 of whom has . The patient has never smoked, she does not drink alcohol and denies any illicit drug use. The patient is almost entirely dependent on her for her activities of daily living due to her severe arthritis, complex regional pain syndrome and neuropathy which have left her wheelchair-bound and only able to walk a few steps with a walker. - Substance History Use: Uses substance without health or social issues: NONE Abuse: Recurrent use of substance despite neg consequences: NONE Dependence: Experiences withdrawal or developed tolerances: NONE - POLST Patient has POLST: No POLST Status: Full Code Meds/Allgy - Home Medications Home Medications: Ambulatory Orders Medication Instructions Recorded Confirmed Acetaminophen [Tylenol] 325 mg PO Q6H PRN 04/26/13 07/24/17 LORazepam [Ativan] 2 mg PO HS 04/26/13 07/24/17 Lisinopril [Zestril] 2.5 mg PO DAILY #30 tablet 07/11/17 07/24/17 Polyethylene Glycol 3350 [Miralax] 17 gm PO DAILY packet 07/11/17 07/24/17 - Allergies Allergies/Adverse Reactions: Allergies Allergy/AdvReac Type Severity Reaction Status Date / Time cephalexin monohydrate * Allergy Hives Verified 01/28/16 01:14 [From Keflex] Review of Systems - Other Findings Other Findings: Unable to obtain a comprehensive review of systems secondary to patient's encephalopathy Exam - Vital Signs Reviewed Vital Signs: Yes - Physical Exam General Appearance: positive: No acute distress, Alert, Other (Patient does not answer questions appropriately, she does not follow commands, she continues to repeat what I say.) Eyes Bilateral: positive: Normal inspection, PERRL, EOMI, No lid inflammation, Conjunctivae nml, No scleral icterus ENT: positive: ENT inspection nml, Pharynx nml, Dry mucous membranes. negative : Purulent nasal drainage, Pharyngeal erythema, Oral lesions Neck: positive: Nml inspection, Thyroid nml, No JVD, Trachea midline. negative : Thyromegaly, Lymphadenopathy (R), Lymphadenopathy (L), Stiff neck, Carotid bruit, Tracheal deviation Respiratory: positive: Chest non-tender, No respiratory distress, Breath sounds nml. negative: Wheezes, Rales, Rhonchi Cardiovascular: positive: Regular rate & rhythm, No murmur, No gallop Peripheral Pulses: positive: 2+ Abdomen: positive: Non-tender, No organomegaly, Nml bowel sounds, No distention. negative: Guarding, Rebound, Hepatomegaly Back: positive: Nml inspection. negative: CVA tenderness (R), CVA tenderness (L ) Skin: positive: Color nml, No rash, Warm. negative: Cyanosis, Diaphoresis, Pallor Extremities: positive: Non-tender, Pedal edema (3+ pitting edema in the bilateral lower extremities Left worse than right), Other (Hypertrophic MCP joints bilaterally on her hands. Patient has deformities of osteoarthritis on both her upper and lower extremities specifically in her hands and feet. She has limited range of motion of her upper and lower extremities with increased tone.) Neurologic/Psychiatric: positive: CN's nml (2-12), Motor nml, Sensation nml, Other (The patient does not appear to have any focal neurologic weakness but appears to be altered as she is not able to answer any of my questions or follow commands. She just continues to repeat whatever I say. She did answer yes to 1 question but then either will not answer at all or repeats what I say.) Conclusion/Plan - Problem List (1) Acute metabolic encephalopathy Conclusion/Plan: Patient's encephalopathy is likely secondary to urinary tract infection as she presented just 2 weeks ago to the hospital with altered mental status and was found to have a UTI at that time. The patient on that presentation did have complete resolution of her altered mental status after treatment with IV antibiotics for her UTI. The patient again had a positive urine analysis in the emergency department suggesting that this was again a UTI. The patient was treated previously with Bactrim orally as an outpatient. The patient grew Klebsiella pneumonia on the previous hospitalization. The patient did not have complete workup for encephalopathy as it did clear quite quickly. Although the patient again appears to have a UTI as a most likely cause of her encephalopathy I feel that this time the encephalopathy would warrant further workup including testing for hypothyroidism, B12 deficiency, neurosyphilis and possibility of stroke or brain mass with MRI. It is also possible that the patient could be having a psychosomatic type presentation given that she is not truly lethargic and is alert and able to speak. Her presentation does not appear to be typical for someone with UTI and metabolic encephalopathy. Plan: IV antibiotics to treat UTI IV fluids TSH, B12, folate and RPR MRI brain Monitor (2) Echolalia Conclusion/Plan: Patient is presenting with encephalopathy we are believes likely due to UTI and is displaying symptoms of echolalia as she continues to repeat anything that I say to her. This is not typical for somebody who presents with encephalopathy due to UTI and appears more like a stroke or psychiatric condition. Plan: Treat with IV antibiotics for UTI MRI brain Further workup for encephalopathy including TSH, folate, B12, ammonia and RPR (3) Urinary tract infection Conclusion/Plan: The patient presented with acute encephalopathy and mild leukopenia. The patient did not have any fevers her UA however was positive for WBCs and leukocyte Estrace suggesting possible UTI. Plan: Patient will be placed on IV antibiotics we will place her on ceftriaxone as she previously grew out Klebsiella that was susceptible to ceftriaxone Patient will be given IV fluids We will wait urine culture and de-escalate antibiotics appropriately once patient is improved (4) Hyponatremia Conclusion/Plan: The patient has a mild hyponatremia with a sodium of 134. The patient appears to be hypovolemic with hyponatremia. The patient also has hypochloremia and has a slightly elevated BUN which would suggest that she is dehydrated. Plan: We will give the patient IV fluids Patient's sodium will be monitored (5) CHF (congestive heart failure) Conclusion/Plan: The patient has both systolic and diastolic heart failure as seen on echocardiogram last month. The patient's ejection fraction is 40-45%. Patient is not on optimal treatment although she is on low dose of lisinopril she is not on a beta-callie. The patient does have significant bilateral lower extremity edema however she does not appear to be hypoxic, short of breath or have pulmonary congestion. The patient appears to be compensated Plan: Patient will be continued on her home dose of lisinopril and we will add low- dose Coreg and continue to monitor the patient. Qualifiers: Congestive heart failure type: systolic (6) Anxiety Conclusion/Plan: The patient has history of anxiety along with her complex regional pain syndrome. The patient takes Ativan at home for her anxiety and we will continue her on her home dose of Ativan while she is hospitalized. (7) Prophylactic use of low molecular weight heparin for venous thromboembolism (VTE) Conclusion/Plan: Patient was placed on Lovenox while she is hospitalized for DVT prophylaxis. - Lab Results Lab results reviewed: Yes Fish Bones: 07/24/17 16:00 07/24/17 16:00 Other Lab Results: Laboratory Results WBC 3.7 x10^3/uL (4.8-10.8) L 07/24/17 16:00 RBC 4.06 10^6/uL (4.20-5.40) L 07/24/17 16:00 Hgb 12.4 g/dL (12.0-16.0) 07/24/17 16:00 Hct 37.4 % (37.0-47.0) 07/24/17 16:00 MCV 92.0 fL (81.0-99.0) 07/24/17 16:00 MCH 30.5 pg (27.0-31.0) 07/24/17 16:00 MCHC 33.2 g/dL (32.0-36.0) 07/24/17 16:00 RDW 15.4 % (12.0-15.0) H 07/24/17 16:00 Plt Count 161 10^3/uL (130-450) 07/24/17 16:00 MPV 9.4 fL (7.9-10.8) 07/24/17 16:00 Neut # 2.7 10^3/uL (1.5-6.6) 07/24/17 16:00 Lymph # 0.8 10^3/uL (1.5-3.5) L 07/24/17 16:00 [place] # 0.2 10^3/uL (0.0-1.0) 07/24/17 16:00 Eos # 0.0 10^3/uL (0.0-0.7) 07/24/17 16:00 Baso # 0.0 10^3/uL (0.0-0.1) 07/24/17 16:00 Absolute Nucleated RBC 0.00 x10^3/uL 07/24/17 16:00 Nucleated RBC % 0.1 /100WBC 07/24/17 16:00 Sodium 134 mmol/L (135-145) L 07/24/17 16:00 Potassium 4.1 mmol/L (3.5-5.0) 07/24/17 16:00 Chloride 98 mmol/L (101-111) L 07/24/17 16:00 Carbon Dioxide 28 mmol/L (21-32) 07/24/17 16:00 Anion Gap 8.0 (6-13) 07/24/17 16:00 BUN 37 mg/dL (6-20) H 07/24/17 16:00 Creatinine 0.7 mg/dL (0.4-1.0) 07/24/17 16:00 Estimated GFR (MDRD) 81 (>89) L 07/24/17 16:00 Glucose 82 mg/dL (70-100) 07/24/17 16:00 Calcium 9.9 mg/dL (8.5-10.3) 07/24/17 16:00 Total Bilirubin 0.8 mg/dL (0.2-1.0) 07/24/17 16:00 AST 51 IU/L (10-42) H 07/24/17 16:00 ALT 37 IU/L (10-60) 07/24/17 16:00 Alkaline Phosphatase 129 IU/L (42-121) H 07/24/17 16:00 Total Protein 7.0 g/dL (6.7-8.2) 07/24/17 16:00 Albumin 4.0 g/dL (3.2-5.5) 07/24/17 16:00 Globulin 3.0 g/dL (2.1-4.2) 07/24/17 16:00 Albumin/Globulin Ratio 1.3 (1.0-2.2) 07/24/17 16:00 Lipase 80 U/L (22-51) H 07/24/17 16:00 Vitamin B12 617 pg/mL (180-914) 07/24/17 16:00 Folate 10.04 ng/mL (5.90 - >24.8) 07/24/17 16:00 Urine Color YELLOW 07/24/17 17:25 Urine Clarity HAZY (CLEAR) 07/24/17 17:25 Urine pH 6.0 PH (5.0-7.5) 07/24/17 17:25 Ur Specific [place] 1.020 (1.002-1.030) 07/24/17 17:25 Urine Protein NEGATIVE mg/dL (NEGATIVE) 07/24/17 17:25 Urine Glucose (UA) NEGATIVE mg/dL (NEGATIVE) 07/24/17 17:25 Urine Ketones NEGATIVE mg/dL (NEGATIVE) 07/24/17 17:25 Urine Occult Blood NEGATIVE (NEGATIVE) 07/24/17 17:25 Urine Nitrite NEGATIVE (NEGATIVE) 07/24/17 17:25 Urine Bilirubin NEGATIVE (NEGATIVE) 07/24/17 17:25 Urine Urobilinogen 0.2 (NORMAL) E.U./dL (NORMAL) 07/24/17 17:25 Ur Leukocyte Esterase TRACE (NEGATIVE) H 07/24/17 17:25 Urine RBC 0-5 /HPF (0-5) 07/24/17 17:25 Urine WBC 11-25 /HPF (0-5) H 07/24/17 17:25 Ur Squamous Epith Cells MANY Squamous (<= Few) H 07/24/17 17:25 Urine Bacteria Rare /HPF (None Seen) 07/24/17 17:25 Ur Microscopic Review INDICATED 07/24/17 17:25 Urine Culture Comments NOT INDICATED 07/24/17 17:25 - Diagnostic Imaging Results Diagnostic Imaging Results Comments: No imaging Issues/Core Measures - Anticipated LOS Anticipated Stay Length: 2 or more midnights - DVT/VTE - Prophylaxis VTE/DVT Prophylaxis med ordered at admit?: Yes
[2017-07-24] MEDS: LISINOPRIL 5 MG TABLET PO SCH (22:07)
[2017-07-24] MEDS: SODIUM CHLORIDE 0.9% 1,000 ML IV SCH (22:07)
[2017-07-24] MEDS: LORazepam 0.5 MG TABLET PO SCH (22:08)
[2017-07-24] MEDS: SODIUM CHLORIDE FLUSH 0.9% 10 ML SYRINGE IVP SCH (22:09)
[2017-07-25] MEDS: SODIUM CHLORIDE 0.9% 1,000 ML IV SCH (07:01)
[2017-07-25] MEDS: SODIUM CHLORIDE FLUSH 0.9% 10 ML SYRINGE IVP SCH ×3 (07:01→20:02)
[2017-07-25 07:25] LABS: BASOPHILS % (AUTO) 1.3 %; EOSINOPHILS % (AUTO) 1.7 %; HCT - HEMATOCRIT 32.5 % (37.0-47.0); HGB - HEMOGLOBIN 10.9 g/dL (12.0-16.0); LYMPHOCYTES # (AUTO) 0.8 10^3/uL (1.5-3.5); LYMPHOCYTES % (AUTO) 35.5 %; MEAN CORPUSCULAR HEMOGLOBIN 30.9 pg (27.0-31.0); MEAN CORPUSCULAR HGB CONC 33.5 g/dL (32.0-36.0); MEAN CORPUSCULAR VOLUME 92.4 fL (81.0-99.0); MEAN PLATELET VOLUME 9.2 fL (7.9-10.8); MONOCYTES # (AUTO) 0.2 10^3/uL (0.0-1.0); MONOCYTES % (AUTO) 9.4 %; NEUTROPHILS # (AUTO) 1.1 10^3/uL (1.5-6.6); NEUTROPHILS % (AUTO) 52.1 %; NUCLEATED RED BLOOD CELLS AUTO 0.1 /100WBC; RED BLOOD COUNT 3.52 10^6/uL (4.20-5.40); RED CELL DISTRIBUTION WIDTH 15.6 % (12.0-15.0); UNCORRECTED WHITE BLOOD COUNT 2.2 x10^3/uL; WHITE BLOOD COUNT 2.2 x10^3/uL (4.8-10.8)
[2017-07-25 07:39] LABS: PLATELET ESTIMATE, MANUAL NORMAL (130-450,000) (NORMAL); PLATELET MORPHOLOGY NORMAL APPEARANCE (NORMAL)
[2017-07-25 07:43] LABS: ALBUMIN/GLOBULIN RATIO 1.3 (1.0-2.2); BILIRUBIN,TOTAL 0.6 mg/dL (0.2-1.0); CALCIUM 9.2 mg/dL (8.5-10.3); CREATININE 0.6 mg/dL (0.4-1.0); POTASSIUM 3.9 mmol/L (3.5-5.0); TOTAL PROTEIN 5.6 g/dL (6.7-8.2)
--- NOTE | 2017-07-25 08:27 | PROVIDER PROGRESS NOTE ---
Assessment/Plan - Problem List (1) Acute metabolic encephalopathy Assessment/Plan: Resolving. Patient is more alert and speaking with family. she is almost at baseline today. She did receive Rocephin however has no symptoms for UTI which we will D/C. encouraged additional nutritional support to improve electrolytes and health. added boost to diet. added more fat intake and gave IVF D5 with NS for gentle hydration (2) Hypoglycemia Assessment/Plan: resolving. D 5 NS IVF for hydration. will give more carbohydrates and encourage intake of food. family is at bedside to help feed patient when needed (3) Urinary tract infection Qualifiers: Urinary tract infection type: acute cystitis Hematuria presence: without hematuria Qualified Code(s): N30.00 - Acute cystitis without hematuria Assessment/Plan: improving. patient was given Rocephin in the ER and is improving. IVF for hydration till patient is eating well. urine culture showed a dirty specimen. (4) Low body weight due to inadequate caloric intake Assessment/Plan: ongoing. patient continues to not have adequate intake for meals. she has boost on tray and encouraged to increase intake daily. family helping to feed patient. she was given IV supplemental minerals and vitamins. Gave B12 and vitamin D. will monitor electrolytes with lab draws - Current Meds Current Meds: Current Medications Generic Name Dose Route Start Last Admin Trade Name Freq PRN Reason Stop Dose Admin Sodium Chloride 1,000 mls @ 100 mls/hr 07/24/17 21:00 07/25/17 07:01 Normal Saline 0.9% IV 100 mls/hr .Q10H CARLA Administration Lisinopril 2.5 mg 07/24/17 22:00 07/24/17 22:07 Zestril PO 2.5 mg DAILY CARLA Administration Lorazepam 2 mg 07/24/17 21:00 07/24/17 22:08 Ativan PO 2 mg HS CARLA Administration Sodium Chloride 10 ml 07/24/17 22:00 07/25/17 07:01 Normal Saline Flush 0.9% IVP Not Given Q8HR CARLA - Lab Result Lab results reviewed: Yes Fish Bone Diagrams: 07/26/17 06:39 07/26/17 06:39 Other Lab Results: Laboratory Results - last 24 hr 07/24/17 07/24/17 07/24/17 16:00 16:00 16:00 WBC 3.7 L RBC 4.06 L Hgb 12.4 Hct 37.4 MCV 92.0 MCH 30.5 MCHC 33.2 RDW 15.4 H Plt Count 161 MPV 9.4 Neut # 2.7 Lymph # 0.8 L [place] # 0.2 Eos # 0.0 Baso # 0.0 Absolute Nucleated RBC 0.00 Nucleated RBC % 0.1 Manual Slide Review Platelet Estimate Platelet Morphology RBC Morph Micro Appear Sodium 134 L Potassium 4.1 Chloride 98 L Carbon Dioxide 28 Anion Gap 8.0 BUN 37 H Creatinine 0.7 Estimated GFR (MDRD) 81 L Glucose 82 POC Whole Bld Glucose Calcium 9.9 Total Bilirubin 0.8 AST 51 H ALT 37 Alkaline Phosphatase 129 H Ammonia Total Protein 7.0 Albumin 4.0 Globulin 3.0 Albumin/Globulin Ratio 1.3 Lipase 80 H Vitamin B12 617 Folate 10.04 TSH Urine Color Urine Clarity Urine pH Ur Specific [place] Urine Protein Urine Glucose (UA) Urine Ketones Urine Occult Blood Urine Nitrite Urine Bilirubin Urine Urobilinogen Ur Leukocyte Esterase Urine RBC Urine WBC Ur Squamous Epith Cells Urine Bacteria Ur Microscopic Review Urine Culture Comments 07/24/17 07/25/17 07/25/17 17:25 07:10 07:10 WBC 2.2 L RBC 3.52 L Hgb 10.9 L Hct 32.5 L MCV 92.4 MCH 30.9 MCHC 33.5 RDW 15.6 H Plt Count 131 MPV 9.2 Neut # 1.1 L Lymph # 0.8 L [place] # 0.2 Eos # 0.0 Baso # 0.0 Absolute Nucleated RBC 0.00 Nucleated RBC % 0.1 Manual Slide Review Indicated Platelet Estimate NORMAL (130-450,000) Platelet Morphology NORMAL APPEARANCE RBC Morph Micro Appear 1+ ANISOCYTOSIS Sodium 135 Potassium 3.9 Chloride 101 Carbon Dioxide 26 Anion Gap 8.0 BUN 30 H Creatinine 0.6 Estimated GFR (MDRD) 97 Glucose 59 L* POC Whole Bld Glucose Calcium 9.2 Total Bilirubin 0.6 AST 42 ALT 31 Alkaline Phosphatase 97 Ammonia Total Protein 5.6 L Albumin 3.2 Globulin 2.4 Albumin/Globulin Ratio 1.3 Lipase Vitamin B12 Folate TSH Urine Color YELLOW Urine Clarity HAZY Urine pH 6.0 Ur Specific [place] 1.020 Urine Protein NEGATIVE Urine Glucose (UA) NEGATIVE Urine Ketones NEGATIVE Urine Occult Blood NEGATIVE Urine Nitrite NEGATIVE Urine Bilirubin NEGATIVE Urine Urobilinogen 0.2 (NORMAL) Ur Leukocyte Esterase TRACE H Urine RBC 0-5 Urine WBC 11-25 H Ur Squamous Epith Cells MANY Squamous H Urine Bacteria Rare Ur Microscopic Review INDICATED Urine Culture Comments NOT INDICATED 07/25/17 07/25/17 07/25/17 07:10 07:10 07:44 WBC RBC Hgb Hct MCV MCH MCHC RDW Plt Count MPV Neut # Lymph # [place] # Eos # Baso # Absolute Nucleated RBC Nucleated RBC % Manual Slide Review Platelet Estimate Platelet Morphology RBC Morph Micro Appear Sodium Potassium Chloride Carbon Dioxide Anion Gap BUN Creatinine Estimated GFR (MDRD) Glucose POC Whole Bld Glucose 67 L Calcium Total Bilirubin AST ALT Alkaline Phosphatase Ammonia 9.0 Total Protein Albumin Globulin Albumin/Globulin Ratio Lipase Vitamin B12 Folate TSH 3.95 Urine Color Urine Clarity Urine pH Ur Specific [place] Urine Protein Urine Glucose (UA) Urine Ketones Urine Occult Blood Urine Nitrite Urine Bilirubin Urine Urobilinogen Ur Leukocyte Esterase Urine RBC Urine WBC Ur Squamous Epith Cells Urine Bacteria Ur Microscopic Review Urine Culture Comments - EKG Results EKG Interpreted Independently: Yes - Diagnostic Imaging Results Diagnostic Imaging Results: Final report reviewed - Additional Planning Condition/Complexity: Improved (plan to discharge in next 24 hours if patient continues to improve.) Consult/Specialty: OT, PT Plan Discussed with:: Patient, Family, Case Management Time Spent: 31-60 minutes Subjective - Subjective Patient Reports: Feeling Better, Resting Comfortably, No Complaints Nursing Reports: Confused (improving but this is close to her baseline mental status) Objective Vital Signs: Vital Signs - 24 hr 07/24/17 07/24/17 07/25/17 21:20 21:35 00:00 Temperature 35.2 C L 35.2 C L 36.5 C Heart Rate [ 56 L 52 L Brachial] Respiratory 16 16 Rate Blood Pressure 143/94 H 111/89 H [Right Brachial artery] O2 Saturation 98 97 07/25/17 07:39 Temperature Heart Rate [ 47 L Brachial] Respiratory 16 Rate Blood Pressure 106/68 [Right Brachial artery] O2 Saturation 99 Oxygen O2 Source Room air I&O (Last 24 Hrs): Intake and Output Totals x24h 07/23/17 07/24/17 07/25/17 23:59 23:59 23:59 Intake Total 1210 Balance 1210 General: Alert, Cooperative, No acute distress HEENT: Atraumatic, PERRLA, EOMI Neck: Supple, No JVD, No thyromegaly, +2 carotid pulse wo bruit Lymphatic: no adenopathy Neuro: Alert, Disoriented (back to baseline) Cardiovascular: Regular rate, Normal S1, Normal S2 Respiratory: Chest non-tender, No respiratory distress, Breath sounds nml Abdomen: Normal bowel sounds, Soft, No tenderness, No masses Genitourinary: No Discharge Extremities: No clubbing, No cyanosis, No edema, Normal pulses, No tenderness/ swelling Skin: No rashes, No breakdown, No significant lesion - Results Results: Laboratory Results WBC 2.2 x10^3/uL (4.8-10.8) L 07/25/17 07:10 RBC 3.52 10^6/uL (4.20-5.40) L 07/25/17 07:10 Hgb 10.9 g/dL (12.0-16.0) L 07/25/17 07:10 Hct 32.5 % (37.0-47.0) L 07/25/17 07:10 MCV 92.4 fL (81.0-99.0) 07/25/17 07:10 MCH 30.9 pg (27.0-31.0) 07/25/17 07:10 MCHC 33.5 g/dL (32.0-36.0) 07/25/17 07:10 RDW 15.6 % (12.0-15.0) H 07/25/17 07:10 Plt Count 131 10^3/uL (130-450) 07/25/17 07:10 MPV 9.2 fL (7.9-10.8) 07/25/17 07:10 Neut # 1.1 10^3/uL (1.5-6.6) L 07/25/17 07:10 Lymph # 0.8 10^3/uL (1.5-3.5) L 07/25/17 07:10 [place] # 0.2 10^3/uL (0.0-1.0) 07/25/17 07:10 Eos # 0.0 10^3/uL (0.0-0.7) 07/25/17 07:10 Baso # 0.0 10^3/uL (0.0-0.1) 07/25/17 07:10 Absolute Nucleated RBC 0.00 x10^3/uL 07/25/17 07:10 Nucleated RBC % 0.1 /100WBC 07/25/17 07:10 Manual Slide Review Indicated 07/25/17 07:10 Platelet Estimate NORMAL (130-450,000) (NORMAL) 07/25/17 07:10 Platelet Morphology NORMAL APPEARANCE (NORMAL) 07/25/17 07:10 RBC Morph Micro Appear 1+ ANISOCYTOSIS (NORMAL) 07/25/17 07:10 Sodium 135 mmol/L (135-145) 07/25/17 07:10 Potassium 3.9 mmol/L (3.5-5.0) 07/25/17 07:10 Chloride 101 mmol/L (101-111) 07/25/17 07:10 Carbon Dioxide 26 mmol/L (21-32) 07/25/17 07:10 Anion Gap 8.0 (6-13) 07/25/17 07:10 BUN 30 mg/dL (6-20) H 07/25/17 07:10 Creatinine 0.6 mg/dL (0.4-1.0) 07/25/17 07:10 Estimated GFR (MDRD) 97 (>89) 07/25/17 07:10 Glucose 59 mg/dL (70-100) L* 07/25/17 07:10 POC Whole Bld Glucose 67 mg/dL (70 - 100) L 07/25/17 07:44 Calcium 9.2 mg/dL (8.5-10.3) 07/25/17 07:10 Total Bilirubin 0.6 mg/dL (0.2-1.0) 07/25/17 07:10 AST 42 IU/L (10-42) 07/25/17 07:10 ALT 31 IU/L (10-60) 07/25/17 07:10 Alkaline Phosphatase 97 IU/L (42-121) 07/25/17 07:10 Ammonia 9.0 umol/L (7-35) 07/25/17 07:10 Total Protein 5.6 g/dL (6.7-8.2) L 07/25/17 07:10 Albumin 3.2 g/dL (3.2-5.5) 07/25/17 07:10 Globulin 2.4 g/dL (2.1-4.2) 07/25/17 07:10 Albumin/Globulin Ratio 1.3 (1.0-2.2) 07/25/17 07:10 Lipase 80 U/L (22-51) H 07/24/17 16:00 Vitamin B12 617 pg/mL (180-914) 07/24/17 16:00 Folate 10.04 ng/mL (5.90 - >24.8) 07/24/17 16:00 TSH 3.95 uIU/mL (0.34-5.60) 07/25/17 07:10 Urine Color YELLOW 07/24/17 17:25 Urine Clarity HAZY (CLEAR) 07/24/17 17:25 Urine pH 6.0 PH (5.0-7.5) 07/24/17 17:25 Ur Specific [place] 1.020 (1.002-1.030) 07/24/17 17:25 Urine Protein NEGATIVE mg/dL (NEGATIVE) 07/24/17 17:25 Urine Glucose (UA) NEGATIVE mg/dL (NEGATIVE) 07/24/17 17:25 Urine Ketones NEGATIVE mg/dL (NEGATIVE) 07/24/17 17:25 Urine Occult Blood NEGATIVE (NEGATIVE) 07/24/17 17:25 Urine Nitrite NEGATIVE (NEGATIVE) 07/24/17 17:25 Urine Bilirubin NEGATIVE (NEGATIVE) 07/24/17 17:25 Urine Urobilinogen 0.2 (NORMAL) E.U./dL (NORMAL) 07/24/17 17:25 Ur Leukocyte Esterase TRACE (NEGATIVE) H 07/24/17 17:25 Urine RBC 0-5 /HPF (0-5) 07/24/17 17:25 Urine WBC 11-25 /HPF (0-5) H 07/24/17 17:25 Ur Squamous Epith Cells MANY Squamous (<= Few) H 07/24/17 17:25 Urine Bacteria Rare /HPF (None Seen) 07/24/17 17:25 Ur Microscopic Review INDICATED 07/24/17 17:25 Urine Culture Comments NOT INDICATED 07/24/17 17:25 - Procedures Procedures: MRI OF BRAIN- shows no acute bleeding or process. Chest XRAT- no acute infiltrate or effusions
[2017-07-25] MEDS ORDERED: CARVEDILOL 3.125 MG TABLET PO SCH (09:00)
[2017-07-25] MEDS ORDERED: LISINOPRIL 5 MG TABLET PO SCH (09:00)
[2017-07-25] MEDS: FAMOTIDINE 20 MG TABLET PO SCH (09:06)
[2017-07-25] MEDS: LISINOPRIL 5 MG TABLET PO SCH (09:06)
[2017-07-25] MEDS: ENOXAPARIN 40 MG/0.4 ML SYRINGE SUBQ SCH (09:06)
[2017-07-25] MEDS: SACCHAROMYCES BOULARDII 250 MG CAPSULE PO SCH ×2 (09:06→16:50)
[2017-07-25] MEDS ORDERED: GADOBUTROL 7.5 MMOL/7.5 ML VIAL ONE (09:50)
[2017-07-25] MEDS ORDERED: GADOBUTROL 7.5 MMOL/7.5 ML VIAL IVP ONE (12:02)
--- NOTE | 2017-07-25 13:06 | MRI Preliminary Report ---
Exam: MRI BRAIN W/WO IMPRESSION: 1. No acute infarct, intracranial hemorrhage, midline shift or hydrocephalus. 2. 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 [facility] SITE ID: [id number]
--- NOTE | 2017-07-25 13:09 | MRI Report ---
EXAM: MRI BRAIN WITHOUT AND WITH CONTRAST EXAM DATE: 07/25/2017 12:05 PM. CLINICAL HISTORY: Altered mental status, word finding difficulties. Altered mental status status post urinary tract infection COMPARISON: None. TECHNIQUE: Multiplanar, multisequence T1-weighted and fluid-sensitive MR sequences of the brain were performed. Sequences optimized for routine evaluation. Other: Use of alternate coils (non-head coils) necessary for this patient due to extreme kyphosis. Without and with IV Contrast: 6 cc IV Gadavist. FINDINGS: Diffusion-weighted sequence demonstrates no evidence for acute infarct or focal abnormalities. There is mild diffuse cerebral volume loss. There is no abnormal enhancement. Limited evaluation of the art erial and dural venous sinus structures are unremarkable. 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 Major intracranial flow voids are preserved. Orbits, optic nerve sheath complex, optic chiasm, pituitary, cavernous sinus and Meckel's cave appear normal. Marrow signal and extracranial soft tissue appear unremarkable. Craniocervical junction and visualized upper cervical cord appear unremarkable. IMPRESSION: 1. No acute infarct, intracranial hemorrhage, midline shift or hydrocephalus. 2. 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 [facility] Referring Provider Line: [phone] SITE ID: [id number]
[2017-07-25 15:02] LABS: CHOL/HDL RATIO 2.2 (<4.4); CHOLESTEROL 212 mg/dL; HDL CHOLESTEROL 96 mg/dL; LDL/HDL RATIO 1.1 (<4.4); TRIGLYCERIDES 52 mg/dL; VLDL CHOLESTEROL 10 mg/dL
[2017-07-25 15:04] LABS: HEMOGLOBIN A1C 0.39 g/dL
[2017-07-25] MEDS ORDERED: CYANOCOBALAMIN 1,000 MCG/ML VIAL IM ONE (15:19)
[2017-07-25] MEDS ORDERED: NACL IV SCH (16:30)
[2017-07-25] MEDS ORDERED: MULTIVITAMIN IV SCH (16:30)
[2017-07-25] MEDS ORDERED: DEXTROSE IV SCH (16:30)
[2017-07-25] MEDS: POLYETHYLENE GLYCOL 3350 17 GM PACKET PO SCH (16:50)
[2017-07-25] MEDS: OMEGA-3 ACID ETHYL ESTERS 1 GM CAPSULE PO SCH ×2 (16:50→21:14)
[2017-07-25] MEDS ORDERED: MULTIVITAMIN W/IRON, MINERALS 15 ML PO SCH (17:00)
[2017-07-25] MEDS ORDERED: cefTRIAXone 1 GM in SODIUM CHLORIDE 0.9% MINIBAG 100 ML IV SCH (18:00)
[2017-07-25] MEDS: LORazepam 0.5 MG TABLET PO SCH (21:14)
[2017-07-25] MEDS: CHOLECALCIFEROL 5,000 UNIT CAPSULE PO SCH (21:14)
[2017-07-26] MEDS: SODIUM CHLORIDE 0.9% 1,000 ML IV SCH (00:05)
[2017-07-26] MEDS: SODIUM CHLORIDE FLUSH 0.9% 10 ML SYRINGE IVP SCH ×2 (06:16→14:34)
[2017-07-26 07:02] LABS: EOSINOPHILS % (AUTO) 2.4 %; HCT - HEMATOCRIT 28.5 % (37.0-47.0); HGB - HEMOGLOBIN 9.6 g/dL (12.0-16.0); LYMPHOCYTES % (AUTO) 38.7 %; MEAN CORPUSCULAR HEMOGLOBIN 30.8 pg (27.0-31.0); MEAN CORPUSCULAR HGB CONC 33.5 g/dL (32.0-36.0); MEAN PLATELET VOLUME 9.6 fL (7.9-10.8); MONOCYTES % (AUTO) 10.8 %; NEUTROPHILS % (AUTO) 47.1 %; RED CELL DISTRIBUTION WIDTH 15.7 % (12.0-15.0); UNCORRECTED WHITE BLOOD COUNT 1.7 x10^3/uL
[2017-07-26 07:13] LABS: ALBUMIN/GLOBULIN RATIO 1.4 (1.0-2.2); BILIRUBIN,TOTAL 0.4 mg/dL (0.2-1.0); CALCIUM 8.7 mg/dL (8.5-10.3); CREATININE 0.5 mg/dL (0.4-1.0); TOTAL PROTEIN 4.8 g/dL (6.7-8.2)
[2017-07-26 07:26] LABS: WHITE BLOOD COUNT 1.7 x10^3/uL (4.8-10.8)
[2017-07-26 07:28] LABS: BAND NEUTROPHILS % (MANUAL) 0 %
[2017-07-26 07:29] LABS: BASOPHILS % (MANUAL) 1 %; LYMPHOCYTES % (MANUAL) 32 %; NEUTROPHILS % (MANUAL) 64 %; NP AUTO DIFFERENTIAL? YES; NP MAN DIFFERENTIAL? NO; PLATELET ESTIMATE, MANUAL DECREASED (<130,000) (NORMAL); PLATELET MORPHOLOGY NORMAL APPEARANCE (NORMAL); TOTAL CELLS COUNTED 100
[2017-07-26] MEDS ORDERED: DEXTROSE 5%-0.45% NACL 1,000 ML IV ONE (08:00)
[2017-07-26] MEDS ORDERED: DOCUSATE SODIUM 250 MG CAPSULE PO ONE (08:29)
[2017-07-26] MEDS ORDERED: SENNA 8.6 MG TABLET ONE (08:30)
[2017-07-26] MEDS: OMEGA-3 ACID ETHYL ESTERS 1 GM CAPSULE PO SCH (08:35)
[2017-07-26] MEDS: SACCHAROMYCES BOULARDII 250 MG CAPSULE PO SCH ×2 (08:35→16:23)
[2017-07-26] MEDS: POLYETHYLENE GLYCOL 3350 17 GM PACKET PO SCH (08:36)
[2017-07-26] MEDS: LISINOPRIL 5 MG TABLET PO SCH (08:36)
[2017-07-26] MEDS: FAMOTIDINE 20 MG TABLET PO SCH (08:36)
[2017-07-26] MEDS: CHOLECALCIFEROL 5,000 UNIT CAPSULE PO SCH (08:36)
[2017-07-26] MEDS: ENOXAPARIN 40 MG/0.4 ML SYRINGE SUBQ SCH (08:37)
[2017-07-26] MEDS ORDERED: DOCUSATE SODIUM 250 MG CAPSULE PO SCH (09:00)
[2017-07-26] MEDS ORDERED: THIAMINE INJ 100 MG, FOLIC ACID INJ 1 MG in SODIUM CHLORIDE 0.9% 100ML 100 ML IV SCH (09:00)
[2017-07-26] MEDS ORDERED: SENNA 8.6 MG TABLET PO SCH (09:00)
--- NOTE | 2017-07-26 10:44 | Discharge Plan ---
Discharge Plan Disposition: Home, Self Care Condition: Stable Prescriptions: Cholecalciferol [Vitamin D3] 5,000 unit PO BID #30 capsule [place]-3 Acid Ethyl Esters [Lovaza] 1 gm PO BID #30 capsule Diet: Regular Activity Restrictions: Activity as Tolerated Shower Restrictions: No Driving Restrictions: No Assistance Devices: Wheelchair Weight Bearing: Full Weight Instruction Topics: MyPlate Nutrition Oils Additional Instructions or Follow Up instructions: PLEASE CONTINUE TO TAKE ALL HOME MEDICATIONS PRESCRIBED AND EAT A DIET RICH IN GOOD FATS AND OILS. YOU NEED TO ADD EITHER BOOST OR ENSURE TO YOUR DIET. YOU HAVE BEEN HAVING LOW BLOOD GLUCOSE IN THE MORNING AND NEED TO EAT A SNACK THAT IS PROTEIN AND CARBS AT NIGHT BEFORE BED SO YOUR BLOOD GLUCOSE DOES NOT DROP IN THE MORNING. YOU NEED TO SEE YOUR PCP FOR REFERRAL TO [facility] FOR NUTRITIONAL SUPPORT. PLEASE CONTINUE WITH OTHER IMMUNE SYSTEM SUPPORT SUCH GOOD FATS AND MINERALS/ VITAMINS. A PRESCRIPTION FOR THESE HAS BEEN PROVIDED TO YOU. TAKING MAGNESIUM SUPPLEMENTS AND A THIAMINE SUPPLEMENT WILL HELP. YOU WERE GIVEN A B12 SHOT IN THE HOSPITAL FOR THE MONTH PLEASE SEE YOUR PRIMARY CARE PROVIDER WITHIN 1 WEEK OF DISCHARGE RETURN TO THE ER IF SYMPTOMS GET WORSE OR YOU HAVE NEW SYMPTOMS THAT DO NOT RESOLVE SUCH SHORTNESS OF BREATH OR CHEST PAIN No Smoking: If you smoke, Please STOP! Call for help. Follow-up with: Josselin Ramirez MD [Primary Care Provider] -
--- NOTE | 2017-07-26 10:53 | DISCHARGE SUMMARY ---
"Discharge Summary Admit Date: 07/24/17 Discharge Date: 07/26/17 Discharging Provider: JUMA LUDWIG APRN Primary Care Provider: AKSHAT THOMAS MD Code Status: Attempt Resuscitation Condition at Discharge: Stable Discharge Disposition: 01 Home, Self Care Discharge Facility Name: HOME - DIAGNOSES Admission Diagnoses: 1. ACUTE METABOLIC ENCEPHALOPATHY 2. ANXIETY DISORDER, UNSPECIFIED 3. HYPO-OSMOLALITY AND HYPONATREMIA 4. MERCEDES INSPECIFIED 5. LOW BODY WEIGHT WITH MALNUTRITION Discharge Diagnoses with Status of Each Condition: 1. ACUTE METABOLIC ENCEPHALOPATHY WITH ANOREXIA AND NUTRITIONAL DEFICITS 2. ACUTE ON CHRONIC ANXIETY DISORDER, UNSPECIFIED 3. HYPO-OSMOLALITY AND HYPONATREMIA 4. ACUTE ON CHRONIC PERIPHERAL NEUROPATHY FROM NUTRITIONAL DEFICITS 5. LOW BODY WEIGHT WITH MALNUTRITION AND ANOREXIA - HPI History of Present Illness: History of Present Illness HPI Comment/Other: Patient is a 77-year-old female with a past medical history significant for complex regional pain syndrome with pain in her left hip and left leg, peripheral neuropathy, chronic constipation, diffuse osteoarthritis and debility requiring the patient to be in a wheelchair she presented to the emergency department today secondary to altered mental status. The patient has been admitted to [facility] 2 times in the last 3 weeks once for syncope and metabolic encephalopathy and the other time for metabolic encephalopathy secondary to UTI. During her last admission the patient was found to have a urinary tract infection with Klebsiella pneumonia and she was treated with IV antibiotics in the hospital. The patient had improvement in her mental status and was discharged home on Bactrim. The patient just completed her course of Bactrim 6 days ago and the states that she seemed to recover to her normal mental status. However today the patient became altered and less responsive. He did not note any fevers or chills at home but brought in the patient to the emergency room as she was altered. The patient is unable to provide any review of systems secondary to her altered mental status. When spoken to the patient just repeats what ever I say to her and she is not following any commands. On presentation to the emergency department the patient is afebrile she was slightly bradycardic but otherwise vital signs are within normal limits. The patient's lab work did reveal a mild hyponatremia and a mildly elevated BUN. The patient had a mild leukopenia and her UA was positive for 11-25 WBCs and trace leukocyte Estrace. Given the patient's altered mental status and positive urine the patient was admitted to the hospital for urinary tract infection with metabolic encephalopathy. - CONSULTS | PROCEDURES Consultations: NONE Procedures: MRI OF BRAIN- - HOSPITAL COURSE Hospital Course: PATIENT WAS ADMITTED WITH ENCEPHALOPATHY POSSIBLE UTI. SHE RECEIVED ROCEPHIN IN THE ER AND DURING ADMISSION BUT WAS NOTED TO BE DIRTY AND NO CULTURE NEEDED. 1. ACUTE METABOLIC ENCEPHALOPATHY WITH ANOREXIA AND NUTRITIONAL DEFICITS PATIENT WAS FOUND TO NOT BE EATING ADEQUATELY AT HOME AND REFUSING MEALS. DAUGHTER STATES SHE HAD JUST FINISHED COURSE OF ANTIBIOTICS FOR POSSIBLE UTI. SHE HAS ELECTROLYTE IMBALANCES AND NOT EATING ENOUGH PROTEIN DURING THE DAY. SHE WAS GIVEN ENSURE AND ADDITIONAL SUPPLEMENTAL SUPPORT INCLUDING MVI IV, THIAMINE, B12 AND FATS. NEURO CHECKS COMPLETED AND MRI OF BRAIN FOR ACUTE PROCESS COMPLETED. NO NEW ACUTE PROCESS NOTED ON MRI SCAN OF THE BRAIN 2. ACUTE ON CHRONIC ANXIETY DISORDER, UNSPECIFIED PATIENT WAS GIVEN ATIVAN AND BEHAVIOR MONITORED 3. HYPO-OSMOLALITY AND HYPONATREMIA PATIENT WAS GIVEN IVF NS AND D5NS FOR HYDRATION AND CORRECTION OF HER ELECTROLYTES 4. ACUTE ON CHRONIC PERIPHERAL NEUROPATHY FROM NUTRITIONAL DEFICITS PATIENT WAS GIVEN B12 AND THIAMINE AND ON BOOST AND ENSURE. SHE WORKED WITH PT AND OT DAILY TO ASSIST WITH AMBULATION 5. LOW BODY WEIGHT WITH MALNUTRITION AND ANOREXIA WEIGHT WAS MONITORED AND SHE WAS GIVEN FULL DIET AND BLOOD GLUCOSE CORRECTED NEEDED WITH D5NS IVF X 2 BAGS. NUTRITION COUNSELING GIVEN TO FAMILY AT BEDSIDE. DVT PROPHYLAXIS WITH LOVENOX AND SCD PATIENT WAS ABLE TO BE DISCHARGED HOME WITH FAMILY AND INSTRUCTED TO SEE NEUROLOGY AND PCP IN 1 WEEK OF DISCHARGE. X RAY TECHNOLOGIST FOLLOWUP WAS RECOMMENDED - ALLERGIES Allergies/Adverse Reactions: Allergies Allergy/AdvReac Type Severity Reaction Status Date / Time cephalexin monohydrate * Allergy Hives Verified 01/28/16 01:14 [From [facility]] - MEDICATIONS Home Medications: Ambulatory Orders Medication Instructions Recorded Confirmed Acetaminophen [Tylenol] 325 mg PO Q6H PRN 04/26/13 07/24/17 LORazepam [Ativan] 2 mg PO QPM 04/26/13 07/25/17 Lisinopril [Zestril] 2.5 mg PO DAILY #30 tablet 07/11/17 07/25/17 Polyethylene Glycol 3350 [Miralax] 17 gm PO DAILY packet 07/11/17 07/24/17 Gabapentin 100 mg PO TID 07/25/17 07/25/17 Cholecalciferol [Vitamin D3] 5,000 unit PO BID #30 capsule 07/26/17 [place]-3 Acid Ethyl Esters [Lovaza] 1 gm PO BID #30 capsule 07/26/17 - PHYSICAL EXAM AT DISCHARGE General Appearance: positive: No acute distress, Alert Eyes Bilateral: positive: Normal inspection, PERRL ENT: positive: ENT inspection nml, Pharynx nml, No signs of dehydration Neck: positive: Nml inspection, Thyroid nml, No JVD, Trachea midline Respiratory: positive: Chest non-tender, No respiratory distress, Breath sounds nml Cardiovascular: positive: Regular rate & rhythm, No murmur, No gallop Peripheral Pulses: positive: 2+ Abdomen: positive: Non-tender, No organomegaly, Nml bowel sounds, No distention. negative: Guarding, Rebound Back: positive: Nml inspection Skin: positive: Color nml, No rash, Warm, Dry Extremities: positive: Non-tender, Full ROM, Nml appearance, No pedal edema Neurologic/Psychiatric: positive: Mood/affect nml, Disoriented to place, Disoriented to time, Weakness. negative: Facial droop, Depressed mood/affect - LABS Result Diagrams: 07/26/17 06:39 07/26/17 06:39 - DIAGNOSTIC IMAGING Diagnostic Imaging Results: Final report reviewed Diagnostic Imaging Results Comments: MRI OF BRAIN WITH PROBABLE CHRONIC MICROVASCULAR ANGIOPATHY. NO ACUE BLEEDING OR MIDLINE SHIFT OR INFARCT - FOLLOW UP Follow Up: PATIENT WAS INSTRUCTED TO SEE PRIMARY CARE AND NEUROLOGY WITHIN THE FIRST WEEK OF DISCHARGE PATIENT OVERALL NEURO STATUS IMPROVED AND SHE WAS ABLE TO BE DISCHARGED HOME SAFELY WITH FAMILY - TIME SPENT Time Spent in Discharge (Minutes): 45 (FOR DISCHARGE PLANNING AND ASSESSMENT)"
[2017-07-26] MEDS ORDERED: BACITRACIN OINT TOP ONE (14:14)
[2017-07-26] MEDS ORDERED: SODIUM CHLORIDE 0.9% 1,000 ML IV ONE (15:59)
[2017-07-26 19:06] VITALS: BP 130/75
== END 2017-07-26 19:25 | disposition home or self-care (01) | DRG 71 ==
LOC: ED 15:33 → MS3 20:05
PROVIDERS: ADMIT Internal Medicine; ATTEND Nurse Practitioner
DX: N39.0 Urinary tract infection, site not specified (principal); R41.82 Altered mental status, unspecified; G93.41 Metabolic encephalopathy; F41.9 Anxiety disorder, unspecified; Z68.1 Body mass index [BMI] 19.9 or less, adult; E87.1 Hypo-osmolality and hyponatremia; I50.40 Unspecified combined systolic (congestive) and diastolic (congestive) heart failure; Z79.899 Other long term (current) drug therapy; F41.8 Other specified anxiety disorders; R63.0 Anorexia; E63.9 Nutritional deficiency, unspecified; E86.0 Dehydration; D72.819 Decreased white blood cell count, unspecified; E87.8 Other disorders of electrolyte and fluid balance, not elsewhere classified; G62.9 Polyneuropathy, unspecified; G90.522 Complex regional pain syndrome I of left lower limb; E16.2 Hypoglycemia, unspecified; M19.90 Unspecified osteoarthritis, unspecified site; Z99.3 Dependence on wheelchair; H54.7 Unspecified visual loss; Z86.19 Personal history of other infectious and parasitic diseases; Z96.649 Presence of unspecified artificial hip joint; Z87.440 Personal history of urinary (tract) infections
CPT/HCPCS: 36415; 70553; 80053; 80061; 81001; 81003; 82140; 82525; 82607; 82746; 83036; 83690; 83735; 84443; 85025; 86780; 87086; 96374; 99283; 99285

== ENCOUNTER 2017-07-28 21:35 | Emergency (ER) | payer MEDICARE, OTHER ==
[2017-07-28 22:17] LABS: BASOPHILS % (AUTO) 0.9 %; EOSINOPHILS % (AUTO) 0.3 %; HCT - HEMATOCRIT 38.3 % (37.0-47.0); HGB - HEMOGLOBIN 12.7 g/dL (12.0-16.0); LYMPHOCYTES # (AUTO) 0.7 10^3/uL (1.5-3.5); LYMPHOCYTES % (AUTO) 17.8 %; MEAN CORPUSCULAR HEMOGLOBIN 30.7 pg (27.0-31.0); MEAN CORPUSCULAR HGB CONC 33.2 g/dL (32.0-36.0); MEAN CORPUSCULAR VOLUME 92.5 fL (81.0-99.0); MEAN PLATELET VOLUME 9.5 fL (7.9-10.8); MONOCYTES # (AUTO) 0.3 10^3/uL (0.0-1.0); MONOCYTES % (AUTO) 7.3 %; NEUTROPHILS % (AUTO) 73.7 %; RED BLOOD COUNT 4.14 10^6/uL (4.20-5.40); RED CELL DISTRIBUTION WIDTH 15.6 % (12.0-15.0)
[2017-07-28 22:22] LABS: ALBUMIN/GLOBULIN RATIO 1.3 (1.0-2.2); BILIRUBIN,TOTAL 0.5 mg/dL (0.2-1.0); CALCIUM 10.1 mg/dL (8.5-10.3); CREATININE 0.6 mg/dL (0.4-1.0); POTASSIUM 4.3 mmol/L (3.5-5.0); TOTAL PROTEIN 6.7 g/dL (6.7-8.2)
[2017-07-28 22:34] LABS: BILIRUBIN,URINE NEGATIVE (NEGATIVE); PH,URINE 6.5 PH (5.0-7.5)
[2017-07-28 22:37] LABS: UA CHARGE (STRIP ONLY) YES; UR CULTURE IF IND NOT INDICATED
[2017-07-28 22:43] LABS: PLATELET ESTIMATE, MANUAL NORMAL (130-450,000) (NORMAL)
--- NOTE | 2017-07-28 22:43 | XRAY Preliminary Report ---
Exam: XR CHEST 1 VIEW IMPRESSION: No acute cardiopulmonary process. [facility] SITE ID: [id number]
--- NOTE | 2017-07-28 22:45 | XRAY Report ---
EXAM: CHEST RADIOGRAPHY EXAM DATE: 07/28/2017 10:07 PM. CLINICAL HISTORY: Short of breath. COMPARISON: 07/09/2017 chest x-ray. TECHNIQUE: 1 view. FINDINGS: Lungs/Pleura: No focal opacities evident. No pleural effusion. No pneumothorax. Mediastinum: Normal heart size. Tortuous aorta. Other: None. IMPRESSION: No acute cardiopulmonary process. [facility] Referring Provider Line: [phone] SITE ID: [id number]
[2017-07-28] MEDS ORDERED: OLANZapine 10 MG VIAL IM STA (23:10)
[2017-07-28] MEDS ORDERED: OLANZapine 10 MG VIAL IM ONE (23:19)
[2017-07-28] MEDS ORDERED: LORazepam 2 MG/ML SYRINGE IVP STA (23:38)
[2017-07-28] MEDS ORDERED: LORazepam 2 MG/ML SYRINGE ONE (23:44)
--- NOTE | 2017-07-28 23:59 | ED Physician Documentation ---
PD HPI ALTERED MENTAL STATUS - Stated complaint Stated Complaint: AMS - Chief complaint Chief Complaint: Ext Problem - History obtained from History obtained from: Family, EMS - History of Present Illness Timing - onset: Chronic Timing - details: Gradual onset, Waxing and waning Quality / character: Confused, Disoriented Associated symptoms: Dyspnea. No: Fever, Headache, Stiff neck Basline status: Alert and oriented X 3, Disoriented Similar symptoms before: Work up / diagnostics, Treatment, Follow up Recently seen: Emergency Dept, Admitted - Additional information Additional information: Patient is a 77 year old female with a history of echolalia, likely secondary to vascular dementia who was brought in to the emergency department for shortness of breath. Patient has been in the hospital numerous times in the past few months with repetitive speech, all of the diagnostics have been within normal limits. Today the states that she was normal this afternoon and when they came back from shopping the patient was tachypneic,. it continued to last so the family called ems. by the time ems arrived her symptoms had resolved but they brought the patient in for evaluation. Upon initial evaluation in the emergency department patient was awake, and alert but just repeating phrases. Review of Systems Unable to obtain: Confused PD PAST MEDICAL HISTORY - Past Medical History Past Medical History: Yes Cardiovascular: None Respiratory: None Neuro: Headache/migraine, Peripheral neuropathy, Other Endocrine/Autoimmune: None GI: None EDUCATION AND OUTREACH COORDINATOR: None : None HEENT: Chronic vision loss Psych: Anxiety Musculoskeletal: Osteoarthritis, Other Derm: Herpes zoster - Past Surgical History Past Surgical History: Yes Ortho: Hip replacement /EDUCATION AND OUTREACH COORDINATOR: Tubal ligation HEENT: Tonsil/Adenoidectomy - Present Medications Home Medications: Ambulatory Orders Medication Instructions Recorded Confirmed Acetaminophen [Tylenol] 325 mg PO Q6H PRN 04/26/13 07/28/17 LORazepam [Ativan] 1 mg PO QPM 04/26/13 07/28/17 Lisinopril [Zestril] 2.5 mg PO DAILY #30 tablet 07/11/17 07/28/17 Polyethylene Glycol 3350 [Miralax] 17 gm PO DAILY packet 07/11/17 07/28/17 Cholecalciferol [Vitamin D3] 5,000 unit PO BID #30 capsule 07/26/17 07/28/17 [place]-3 Acid Ethyl Esters [Lovaza] 1 gm PO BID #30 capsule 07/26/17 07/28/17 - Allergies Allergies/Adverse Reactions: Allergies Allergy/AdvReac Type Severity Reaction Status Date / Time cephalexin monohydrate * Allergy Hives Verified 07/28/17 22:02 [From [facility]] - Social History Does the pt smoke?: No Smoking Status: Never smoker Does the pt drink ETOH?: Yes Does the pt have substance abuse?: No - Immunizations Immunizations are current?: Yes - POLST Patient has POLST: No POLST Status: Full Code PD ED PE NORMAL - Vitals Vital signs reviewed: Yes - General General: No acute distress, Well developed/nourished - HEENT HEENT: Atraumatic, PERRL, Moist mucous membranes - Neck Neck: Supple, no meningeal sign - Cardiac Cardiac: RRR, No murmur - Respiratory Respiratory: No respiratory distress, Clear bilaterally - Abdomen Abdomen: Soft, Non tender, Non distended - Derm Derm: Normal color, Warm and dry, No rash - Extremities Extremities: No deformity - Neuro Neuro: No motor deficit PD ED PE EXPANDED - Neuro Neuro: Confused, Other (will follow basic comands, moving all extremities ) - Psych Psych: Pressured speech, Other (repetitive speech) Results - Vitals Vitals: Vital Signs - 24 hr 07/28/17 07/28/17 07/28/17 21:38 22:02 22:31 Temperature 36.2 C L Heart Rate 73 68 79 Respiratory 18 25 H 22 Rate Blood Pressure 166/138 H 134/104 H 161/98 H O2 Saturation 96 99 97 07/28/17 07/28/17 23:22 23:55 Temperature Heart Rate 71 56 L Respiratory 24 15 Rate Blood Pressure 151/95 H 106/67 O2 Saturation 98 96 Oxygen O2 Source Room air - Labs Labs: Laboratory Tests 07/28/17 07/28/17 07/28/17 22:05 22:05 22:05 WBC 4.0 L RBC 4.14 L Hgb 12.7 Hct 38.3 MCV 92.5 MCH 30.7 MCHC 33.2 RDW 15.6 H Plt Count 155 MPV 9.5 Neut # 3.0 Lymph # 0.7 L [place] # 0.3 Eos # 0.0 Baso # 0.0 Absolute Nucleated RBC 0.00 Nucleated RBC % 0.0 Manual Slide Review Indicated Platelet Estimate NORMAL (130-450,000) Platelet Morphology 1+ LARGE PLATELETS RBC Morph Micro Appear NORMAL APPEARANCE Sodium 134 L Potassium 4.3 Chloride 96 L Carbon Dioxide 27 Anion Gap 11.0 BUN 18 Creatinine 0.6 Estimated GFR (MDRD) 97 Glucose 86 Calcium 10.1 Total Bilirubin 0.5 AST 57 H ALT 44 Alkaline Phosphatase 124 H Ammonia 21.0 Total Protein 6.7 Albumin 3.8 Globulin 2.9 Albumin/Globulin Ratio 1.3 Lipase 107 H TSH Urine Color Urine Clarity Urine pH Ur Specific Downing Urine Protein Urine Glucose (UA) Urine Ketones Urine Occult Blood Urine Nitrite Urine Bilirubin Urine Urobilinogen Ur Leukocyte Esterase Ur Microscopic Review Urine Culture Comments Urine Opiates Screen Ur Oxycodone Screen Urine Methadone Screen Ur Propoxyphene Screen Ur Barbiturates Screen Ur Tricyclics Screen Ur Phencyclidine Scrn Ur Amphetamine Screen U Methamphetamines Scrn U Benzodiazepines Scrn Urine Cocaine Screen U Cannabinoids Screen 07/28/17 07/28/17 22:05 22:25 WBC RBC Hgb Hct MCV MCH MCHC RDW Plt Count MPV Neut # Lymph # [place] # Eos # Baso # Absolute Nucleated RBC Nucleated RBC % Manual Slide Review Platelet Estimate Platelet Morphology RBC Morph Micro Appear Sodium Potassium Chloride Carbon Dioxide Anion Gap BUN Creatinine Estimated GFR (MDRD) Glucose Calcium Total Bilirubin AST ALT Alkaline Phosphatase Ammonia Total Protein Albumin Globulin Albumin/Globulin Ratio Lipase TSH 4.35 Urine Color YELLOW Urine Clarity CLEAR Urine pH 6.5 Ur Specific [place] 1.020 Urine Protein NEGATIVE Urine Glucose (UA) NEGATIVE Urine Ketones NEGATIVE Urine Occult Blood NEGATIVE Urine Nitrite NEGATIVE Urine Bilirubin NEGATIVE Urine Urobilinogen 0.2 (NORMAL) Ur Leukocyte Esterase NEGATIVE Ur Microscopic Review NOT INDICATED Urine Culture Comments NOT INDICATED Urine Opiates Screen NEGATIVE Ur Oxycodone Screen NEGATIVE Urine Methadone Screen NEGATIVE Ur Propoxyphene Screen NEGATIVE Ur Barbiturates Screen NEGATIVE Ur Tricyclics Screen NEGATIVE Ur Phencyclidine Scrn NEGATIVE Ur Amphetamine Screen NEGATIVE U Methamphetamines Scrn NEGATIVE U Benzodiazepines Scrn POSITIVE H Urine Cocaine Screen NEGATIVE U Cannabinoids Screen NEGATIVE - Rads (name of study) chest Radiology: Final report received (normal chest x-ray) PD MEDICAL DECISION MAKING - ED course Complexity details: reviewed old records, reviewed results, re-evaluated patient , considered differential, d/w family ED course: Patient was seen and examined at bedside. iv access was gained and labs were drawn. chest x-ray was ordered and was within normal limits. Patient's previous records were reviewed and case was discussed with hospitalist who had admitted the patient last time. Patient was treated with zyprexa with no change. Patient's diagnostics were all within normal limits. Patient was treated with her home ativan. Patient would not benefit from inpatient work up as it had all been completed and diagnostics were within normal limits. Patient required no further work up and was stable for discharge with outpatient follow up. Departure - Departure Disposition: Home, Self Care Clinical Impression: Echolalia Condition: Good Instructions: ED Dementia Caregiver Support Follow-Up: Josselin Ramirez MD [Primary Care Provider] - Comments: Your 's diagnostics today were within normal limits. there was no sign of infection and this is likely a progression of her disease. We can try sedatives if she goes into her repetitive spells, or try working with your daughter. You should follow up with your pmd for referral for specific data center manager or geriatric psychiatrist. It is important that seek out help so that you can take care of yourself and get enough exercise and rest. You may return to the emergency department at any time for new, worsening or uncontrollable symptoms.
[2017-07-29 00:25] VITALS: BP 106/67
== END 2017-07-29 00:38 | disposition home or self-care (01) ==
LOC: EDUNIT# → ED 21:35
DX: R48.8 Other symbolic dysfunctions (principal); G62.9 Polyneuropathy, unspecified; M19.90 Unspecified osteoarthritis, unspecified site
CPT/HCPCS: 36415; 51701; 71010; 80053; 80306; 81003; 82140; 83690; 84443; 85025; 96372; 96374; 99284; 99285; J2060; 81001; 87086